=== PATIENT | female | born 1960 | race Caucasian/White ===

== ENCOUNTER 2020-01-07 11:29 | Outpatient (CLI) | payer BC, SELFPAY ==
--- NOTE | ~2020-01-07 | XR_ITS ---
XR foot LT 2V DATE: 01/07/2020 11:54 INDICATION: Left foot pain; no injury. TECHNIQUE: AP and lateral views COMPARISON: None FINDINGS: There is moderately prominent osteophyte is at the first metatarsophalangeal joint and oste oarthritis at some of the interphalangeal joints. Osteoarthritic is also noted at the tarsometatarsal joints. Plantar and posterior calcaneal enthesopathy. No fracture, dislocation, periosteal reaction or bone destruction. IMPRESSION: Polyarticular osteoarthritis Reviewed, dictated and finalized at location B. H DRIER
== END 2020-01-07 11:30 | disposition home or self-care (01) ==
PROVIDERS: PCP Family Medicine; Visit Provider Family Medicine
DX: M19.072 Primary osteoarthritis, left ankle and foot (principal)
CPT/HCPCS: 73620

== ENCOUNTER → 2020-08-25 09:05 | Outpatient (CLI) | payer BC, SELFPAY ==
--- NOTE | ~2020-08-25 | MR_ITS ---
EXAMINATION: MR lumbar spine wo [facility] EXAM DATE: 08/25/2020 09:49 INDICATION: Low back pain, bilateral leg numbness. TECHNIQUE: Multi-sequential, multiplanar MR images of the lumbar spine were obtained without contrast . Sagittal T1, T2, T2 fat saturation images. Axial T2 weighted images. Comparison is made to prior examination from 07/04/2019. FINDINGS: There is 2-3 mm anterolisthesis L4 on L5. The vertebral bodies are otherwise aligned. Mild to moderate disc disease L1-L4, mild at L4-5 and L5-S1. The conus medullaris terminates at the L1/2 l evel and has normal signal intensity and morphology. Mild thoracolumbar dextroscoliosis. There are n o suspicious marrow signal abnormalities. Paraspinal soft tissue is unremarkable. Level by level evaluation: T12-L1: There is a minimal diffuse disc bulge. Facet arthropathy: Mild. Neural foraminal stenosis: No stenosis. Central canal stenosis: No stenosis. L1-L2: There is a mild diffuse disc bulge. Facet arthropathy: Mild. Neural foraminal stenosis: Mild left. Central canal stenosis: Mild. L2-L3: There is a moderate diffuse disc bulge. Facet arthropathy: Mild to moderate . Ligamentum flavum enlargement. Neural foraminal stenosis: Mild to moderate left, mild right. Central canal stenosis: Mild to moderate. L3-L4: There is a moderate diffuse disc bulge. Facet arthropathy: Mild to moderate. Neural foraminal stenosis: Mild to moderate left, mild right. Central canal stenosis: Mild to moderate. L4-L5: There is a mild to moderate diffuse disc bulge asymmetric to the right. Facet arthropathy: Moderate . Ligamentum flavum enlargement. Neural foraminal stenosis: Moderate right, mild to moderate left. Central canal stenosis: Moderate to severe. L5-S1: There is a mild to moderate diffuse disc bulge. Facet arthropathy: Moderate right, mild to moderate left. Neural foraminal stenosis: Mild to moderate right, mild left. Central canal stenosis: Mild to moderate bilateral. Compared to study from 07/04/2019, difficult mild progression in the lumbar spondylosis. The L4-5 Cent ral canal is more narrowed. IMPRESSION: 1. L4-5 grade 1 anterolisthesis, moderate to severe central canal stenosis. 2. Lesser spondylosis other levels. Reviewed, dictated and finalized at location B.
== END ==
PROVIDERS: PCP Family Medicine; Visit Provider Nurse Practitioner Adult Health
DX: M54.16 Radiculopathy, lumbar region (principal)
CPT/HCPCS: 72148

== ENCOUNTER → 2021-01-07 11:07 | Outpatient (CLI) | payer BC, SELFPAY ==
[2021-01-07 20:13] LABS: SARS-CoV-2 RNA PCR Negative
== END ==
PROVIDERS: PCP Family Medicine; Visit Provider Physician Assistant
DX: R09.89 Other specified symptoms and signs involving the circulatory and respiratory systems (principal); R11.10 Vomiting, unspecified; R19.7 Diarrhea, unspecified; R50.9 Fever, unspecified; R51.9 Headache, unspecified
CPT/HCPCS: C9803; U0003; U0005

== ENCOUNTER 2021-02-22 07:54 | Outpatient (CLI) | payer BC, SELFPAY ==
--- NOTE | ~2021-02-22 | MM_ITS ---
EXAMINATION: MM screening mammo BI HISTORY: Screening mammogram TECHNIQUE: Craniocaudal and mediolateral oblique 3-D tomosynthesis images were obtained and synthetic 2-D images were generated. CAD analysis was submitted and interpreted. COMPARISON: 07/04/2019, 02/07/2018, 03/30/2016, 10/14/2014 bilateral digital screening mammogram examina tions BREAST PARENCHYMAL COMPOSITION: There are scattered areas of fibroglandular density. FINDINGS: Left breast masses appear mildly increased in prominence since prior examinations. Diagnost ic left mammogram and left breast ultrasound examination are recommended. Otherwise there is no evidence of suspicious mass, calcification, or architectural distortion to sugg est malignancy in either breast. There has been no other suspicious interval change. IMPRESSION: 1. Suggestion of mildly increased prominence of left breast masses since prior examinations 2. Diagnostic left mammogram and left breast ultrasound examination are recommended. BI-RADS Category 0: Incomplete: Needs additional imaging evaluation. Reviewed, dictated and finalized at location A. IMPRESSION: 1. Suggestion of mildly increased prominence of left breast masses since prior examinations 2. Diagnostic left mammogram and left breast ultrasound examination are recomme nded. BI-RADS Category 0: Incomplete: Needs additional imaging evaluation.
== END 2021-02-22 07:55 | disposition home or self-care (01) ==
LOC: ANHIMG 07:57
PROVIDERS: PCP Family Medicine; Visit Provider Physician Assistant
DX: Z12.31 Encounter for screening mammogram for malignant neoplasm of breast (principal); R92.8 Other abnormal and inconclusive findings on diagnostic imaging of breast
CPT/HCPCS: 77067

== ENCOUNTER 2021-03-16 12:24 | Outpatient (CLI) | payer BC, SELFPAY ==
--- NOTE | ~2021-03-16 | MMUS_ITS ---
EXAMINATION: MM diagnostic mammo unilat LT, US breast LT limited HISTORY: Mildly increased prominence of left breast masses noted on 02/22/2021 screening mammogram TECHNIQUE: Additional 3-D tomosynthesis images of the left breast were performed and synthetic 2-D im ages were generated. CAD analysis was submitted and interpreted. High resolution upper inner and uppe r outer left breast ultrasound was performed. COMPARISON: 02/22/2021 bilateral digital screening mammogram FINDINGS: MAMMOGRAPHIC FINDINGS: Scattered up to 7 mm circumscribed low-density opacities are identified, primarily in the upper mid l eft breast. ULTRASOUND: 11:00 9 cm from nipple: Septated 3.6 x 4.5 x 3.2 mm cyst, without internal vascularity or suspicious shadowing 12:00 3 cm from nipple: 10.9 x 5.2 x 7.7 mm circumscribed lesion without suspicious shadowing, probab le benign lymph node 1:00 5 cm from nipple: Parallel circumscribed 5 x 5.5 x 6.8 mm hypoechoic lesion without internal vas cularity or suspicious shadowing, most likely benign IMPRESSION: 1. Probable benign left breast masses 2. 6 month diagnostic left mammogram and left breast ultrasound follow-up are recommended BI-RADS category 3, probably benign findings. Reviewed, dictated and finalized at location A. IMPRESSION: 1. Probable benign left breast masses 2. 6 month diagnostic left mammogram and left breast ultrasound follow-up are r ecommended BI-RADS category 3, probably benign findings.
== END 2021-03-16 12:25 | disposition home or self-care (01) ==
PROVIDERS: PCP Family Medicine; Visit Provider Physician Assistant
DX: R92.8 Other abnormal and inconclusive findings on diagnostic imaging of breast (principal)
CPT/HCPCS: 76642; 77065

== ENCOUNTER → 2021-11-25 08:44 | Outpatient (CLI) | payer BC, SELFPAY ==
--- NOTE | ~2021-11-25 | CT_ITS ---
EXAMINATION: CT abdomen pelvis w con DATE: 11/25/2021 09:52 INDICATION: Unspecified abdominal pain. TECHNIQUE: Computed tomography (CT) of the abdomen and pelvis was performed with 100 mL Omnipaque 350 intravenous contrast. Automated exposure control and iterative reconstruction technique were employe d. The dose-length product was 1056.53 mGy-cm. COMPARISON: CT abdomen and pelvis 01/04/2019 FINDINGS: The visualized portions of the lung bases demonstrate mild atelectasis. No pleural effusion . The heart size is normal. No pericardial effusion. There is diffuse hepatic steatosis. There are ga llstones in the gallbladder, which is normal in size. The spleen, pancreas, and right adrenal gland a re normal. There is a 1.8 cm mass in left adrenal gland measuring soft tissue attenuation without rick nge in size, likely an adenoma. The kidneys are normal. There are no dilated loops of bowel. The shauna ent is not visualized. There are no pathologically enlarged lymph nodes. There is no free intraperito dawn fluid. There is a ventral hernia containing fat. There is lumbar dextroscoliosis. There is sever e thoracic and lumbar spondylosis. IMPRESSION: 1. Cholelithiasis. No evidence of acute cholecystitis. 2. Ventral hernia containing fat. 3. Diffuse hepatic steatosis. Reviewed, dictated and finalized at location A. DARDS ENGINEER
[2021-11-25 09:30] LABS: Estimated Glomerular Filt Rate > 60
== END ==
PROVIDERS: PCP Family Medicine; Visit Provider Family Medicine
DX: K43.9 Ventral hernia without obstruction or gangrene (principal); K76.0 Fatty (change of) liver, not elsewhere classified; K80.20 Calculus of gallbladder without cholecystitis without obstruction
CPT/HCPCS: 74177; Q9967

== ENCOUNTER 2021-12-29 08:24 | Outpatient (CLI) | payer BC, SELFPAY ==
--- NOTE | 2021-12-29 08:30 | ECG_ITS ---
Measurements Intervals [place] Rate: 90 P: MD: 0 QRS: 27 QRSD: 90 T: -60 QT: 336 QTc: 412 Interpretive Statements SINUS RHYTHM BORDERLINE ST-T WAVE ABNORMALITY- INFERIOR LEADS BASELINE ARTIFACT- I, II, III, AVR, AVL, AVF, V4-V6 BORDERLINE ECG Electronically Signed On 12-29-2021 9:09:23 ORACLE ERP ARCHITECT by Kvng Wahl D.O.
[2021-12-29 09:25] LABS: Alanine Aminotransferase 34 U/L (4-35); Albumin Level 4.2 g/dL (3.5-5.1); Alkaline Phosphatase 88 U/L (38-126); Amylase 112 U/L (30-110); Anion Gap 8 mmol/L (8-16); Aspartate Amino Transferase 38 U/L (14-36); Bilirubin,Total 0.9 mg/dL (0.2-1.3); Blood Urea Nitrogen 11 mg/dL (7-17); Calcium 9.3 mg/dL (8.4-10.2); Carbon Dioxide 29 mmol/L (22-30); Chloride 102 mmol/L (98-107); Estimated Glomerular Filt Rate > 60; Glucose 112 mg/dL (65-110); Lipase 83 U/L (23-300); Potassium 3.7 mmol/L (3.4-5.0); Sodium 139 mmol/L (137-145)
== END 2021-12-29 08:25 | disposition home or self-care (01) ==
LOC: ANHSURGERY 08:29
PROVIDERS: PCP Family Medicine; Visit Provider Surgery
DX: K80.20 Calculus of gallbladder without cholecystitis without obstruction (principal); Z01.818 Encounter for other preprocedural examination; R94.31 Abnormal electrocardiogram [ECG] [EKG]
CPT/HCPCS: 36415; 80048; 80076; 82150; 83690; 86850; 86900; 86901; 93005

== ENCOUNTER 2022-01-03 01:20 | Day surgery (SDC) | payer BC, SELFPAY ==
[2021-12-23 17:04] VITALS: BMI 39.2
--- NOTE | 2021-12-23 17:12 | SUR.PREOP ---
Report to the Outpatient Waiting Room, entrance under the green pavilion located off [facility], at time 1100_ on date _01/03/22 . OR Time: _1 pm . - You will be asked a series of questions to screen for COVID 19 for your protection. - A mask is required within the hospital. - No visitors are allowed at this time. Preoperative COVID Testing Requirements: No COVID Test needed if: (proof is required; if not received patient will have Rapid Test prior to entry) - Patient has received COVID Vaccine at least 14 days prior to procedure date or - Patient has positive COVID test result within last 90 days of surgery date. COVID Test needed if above criteria is not met If not COVID vaccinated a COVID test must be conducted within 72 hours of surgery and patient is asked to isolate self from time of testing until procedure. You will go to the [facility] for your COVID testing. The [facility] [facility] is located at the corner of [address] [facility]. You will only be called if COVID results are positive and your surgeon may reschedule your elective surgery date. Patients may have clear liquids (water, carbonated beverages, clear teas, apple juice) until 3 hours prior to surgery with a maximum of 20 ounces. - No food from midnight until time of surgery - Infants may have breast milk until 4 hours before surgery, formula 6 hours prior to surgery. - Children will be allowed to drink immediately following surgery. If applicable, please bring a bottle or sippy cup to assist with drinking. Juice, water, soda, and popsicles are readily available. For infants on formula, please bring formula the day of surgery. Pacifiers are allowed. Take the following medications with a SIP of water the morning of surgery: _duloxetine,alprazalam Medications to discontinue per physician ___vitamin Date to take last dose_12/31/21 Please no make-up, nail ethiopian, hairspray, perfume, deodorant, or body powder the day of surgery. No jewelry (including any body piercings) or valuables the day of surgery, leave them at home. Please take a shower or bath the night before, or the morning of, surgery with an antibacterial soap. Wear comfortable, loose fitting clothing. Children are encouraged to wear pajamas. - Jewelry must be removed prior to entering the operating room. Rings and piercings that are not removed may be cut off. - The hospital will not accept responsibility for valuables. - Please leave all valuables, including medications, at home the day of surgery. If you are going home after surgery, a licensed medical van driver must drive you home. - NO public transportation without another adult. - We recommend that an adult stay with you for 24 hours following discharge. - We also recommend that you do not drive, make important decision, drink alcoholic beverages, or take any drugs that were not prescribed by your health care provider for at least 24 hours after your discharge time. For Pediatric surgeries, we recommend two adults accompany the child home (only one inside the building at this time). Follow any additional instructions given to you from your surgeon. Telephone instructions given to _nathalie sewell and asked if any additional questions and then verbalized understanding. Patient advised to call surgeon office or pre surgery nurse liaison [phone] if any additional questions.
[2022-01-03] VITALS (7 sets, daily range): BP systolic 118–136; BP diastolic 66–81; PULSE 89–99; RESP 15–19; TEMP 36.3–36.4; O2SAT 93–97
--- NOTE | 2022-01-03 08:03 | WPDANESEPPF ---
Anes - Initial Pre Proc Eval Procedure: Operation Date: 01/03/22 13:00 Proposed Procedures p Laparoscopic Cholecystectomy Possible Open - Luis Taylor DO Date/Time: 01/03/22 08:03 Surgeon: Luis Taylor DO Pre Op Diagnosis: symptomatic cholelithiasis Patient Data Age: 61 Gender: F Height: 1.57 m Weight: 97.27 kg Allergies Allergy/AdvReac Type Severity Reaction Status Date / Time Iodinated Contrast Media Allergy Intermediate rash Verified 01/03/22 11:14 erythromycin base Allergy Mild stomach Verified 01/03/22 11:14 upset adhesive AdvReac Intermediate RASH/REDNESS Verified 01/03/22 11:14 AT SITE,blisters Home Medications Medication Instructions Recorded Confirmed Type fluticasone propionate 50 See Rx Instructions .ROUTE 10/22/20 01/03/22 Rx mcg/actuation nasal .COMPLEX #48 g spray,suspension lisinopril 20 1 tablet PO DAILY #90 tablet 05/26/21 01/03/22 Rx mg-hydrochlorothiazide 12.5 mg tablet cyclobenzaprine 10 mg tablet See Rx Instructions .ROUTE 10/05/21 01/03/22 Rx .COMPLEX #50 tablet tramadol 50 mg tablet 50 mg PO Q6H PRN #60 tablet 10/05/21 01/03/22 Rx albuterol sulfate [ProAir HFA] 2 inh INHALATION PRN 12/23/21 01/03/22 History alprazolam 1 mg PO HS 12/23/21 01/03/22 History aspirin [Adult Aspirin] 81 mg PO DAILY 12/23/21 01/03/22 History kb-wyy-sawoj-calcium carb-K1 1 tablet PO DAILY 12/23/21 01/03/22 History [Women's 50 Plus Multivitamin] polyethylene glycol 3350 [Miralax] 1 g PO DAILY 12/23/21 01/03/22 History duloxetine 60 mg capsule,delayed See Rx Instructions .ROUTE 12/28/21 01/03/22 Rx release .COMPLEX #90 cap Patient hx anesthesia problems: none Family hx anesthesia problems: none Results Review: All pre-operative results and documents have been reviewed as part of the pre-operative evaluation. 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 ct no nodules Surgical History Surgical History H/O resection of small bowel H/O total knee replacement H/O umbilical hernia repair History of appendectomy History of hysterectomy History of incisional hernia repair Family History Family History Sibling Family history of lung cancer Mother Diabetes mellitus Father Carcinoma of colon Other Hypertension Tuberculosis Social History Social History Years smoked: 18 Smoking status: Former smoker Tobacco type: cigarettes Smoking end date: 11/20/98 Additional smoking assessment comments: 1/2 ppd cigarettes x23 years Alcohol intake: never Substance use type: does not use Living arrangements: with family Additional living arrangements comments: Pt lives with at home Additional occupation/education comments: [employer]st Spiritual care concerns: No Anes - Eval Final PreProcedure Day of Procedure 01/03/22 08:03 Patient weight: obese Heart: regular rate and rhythm Lungs: clear to auscultation and normal air movement Airway: Mallampati scale class II Neurological: alert and oriented Last oral intake: >/= 8 hours ASA classification: III Emergent: no Anesthetic plan: proceed Anesthesia type and monitoring: general ETT Results Review: All pre-operative results and documents have been reviewed as part of the pre-operative evaluation. Informed Consent: The patient's anesthetic plan and its attendant risks and benefits were discussed with the patient/family/POA. Questions were solicited and answers provided to the satisfaction
[2022-01-03] MEDS: ACETAMINOPHEN 500 MG TABLET 1000 MG PO (11:35)
[2022-01-03] MEDS: LACTATED RINGERS 1,000 ML 30 ML IV CONT ×2 (11:50→14:48)
[2022-01-03] MEDS: KETOROLAC 15 MG/ML VIAL (*BKC) IV PUSH (12:00)
--- NOTE | 2022-01-03 12:47 | WPDHPUPDATE1 ---
History and Physical Update Update Date/Time: 01/03/22 12:47 History and Physical has been reviewed, including an updated exam of the patient. There are NO changes in the patient's condition. Risks, benefits, and alternatives have been discussed and questions answered. Patient agrees to proceed with procedure.
[2022-01-03] MEDS: SCOPOLAMINE 1.5 MG PATCH TRANSDERM (12:56)
[2022-01-03] MEDS: ceFAZolin 2 GM/D5W 50 ML 2 GM/50 ML BAG IVPB (13:08)
[2022-01-03] MEDS: BUPIVACAINE/EPINEPHRINE 0.5% 30 ML VIAL INFILTRATE (13:47)
--- NOTE | 2022-01-03 14:47 | W.PM.PROC2 ---
Procedure Note - Detailed Date of Procedure 01/03/22 Pre-op Diagnosis symptomatic cholelithiasis, recurrent incisional hernia Post-op Diagnosis same Procedure Performed Laparoscopic cholecystectomy Laparoscopic lysis of adhesions Surgeon Luis Taylor, DO Anesthesia general and local (0.5% bupivacaine) Indications This is a 61-year-old woman presents with abdominal pains for the past 3 months. She was found to have evidence of cholelithiasis and recurrent incisional hernia on a CT scan. She has modified her diet to a low-fat diet since she noted these symptoms. This has helped improve the symptoms. She has a history of a small-bowel resection for GIST and had an incisional hernia repair with mesh 1 year later. The previous operative reports and CT were reviewed and discussions were made with the patient about treatment options. Decision was made to proceed with laparoscopic cholecystectomy, possible open. I discussed assessing the hernia at the time of laparoscopic cholecystectomy and determining how hernia repair will be best approached. Findings Laparoscopic cholecystectomy was performed. I entered the abdomen in the left subcostal region to avoid any of the expected adhesions or mesh in the midline. There were extensive omental and transverse colon adhesions up to the prior mesh. Adhesiolysis was performed to carefully take down all the adhesions from the mid to upper abdominal wall. There were still some adhesions in the lower midline inferior to where the prior mesh was placed. Total operating time was 70 minutes and about 40 minutes of this time was spent taking down adhesions. I was then able to identify the gallbladder and the gallbladder did have a few pericholecystic adhesions. The gallbladder wall appeared very thin. As I was grasping and retracting at the infundibulum, the gallbladder did tear easily and some of the bile was spilled. The cystic duct appeared normal in size. There were 2 small gallstones within the gallbladder. The gallbladder was removed and sent to the lab for pathology. The right upper quadrant was then irrigated with 1 L of sterile saline. No other significant abnormalities were identified in the right upper quadrant. There were 2 small areas of bleeding along the omentum where the adhesiolysis was performed. A [place] grasper with electrocautery was used to carefully grasp the bleeding vessel and cauterize while retracting away from any bowel beneath it. The prior hernia repair was carefully inspected. There appeared to be a 6 cm upper midline hernia at the superior portion of the mesh repair. The mesh appeared to be ballooning up into the hernia defect and was not overlapping the hernia on the left lateral side and superior side. The remainder of the mesh appeared intact. Description of Procedure Procedure as well as risks, benefits, and alternatives were discussed with patient. Written consent was obtained and placed in chart prior to procedure. The patient was brought back to surgical suite. Patient was placed in supine position on operating table. Time-out was done to confirm patient and procedure. Patient was then intubated by the anesthesia department. Abdomen was prepped and draped in sterile fashion using chlorhexidine prep. 0.5% bupivacaine with epinephrine was infiltrated at each site of incision. A 5 mm incision was made in the left upper quadrant and a 5 mm Optiview trocar was advanced through the abdominal layers under direct visualization. Once inside the abdominal cavity, carbon dioxide insufflation was used to create a pneumoperitoneum. The camera was inserted and the abdomen was inspected. The left lateral abdomen appeared free of adhesions, but there were extensive adhesions in the mid abdomen. Another 5 mm incision was made in the left lateral abdomen a 5 mm trocar was inserted under direct visualization. Careful dissection of the adhesions was carried out using Metzenbaum scissors
== END 2022-01-03 16:42 | disposition home or self-care (01) ==
PROVIDERS: PCP Family Medicine; Visit Provider Surgery
PROC: 0FT44ZZ Resection of Gallbladder, Percutaneous Endoscopic Approach (ICD-10-PCS; CPT 47562; principal; 2022-01-03 13:00)
DX: K80.10 Calculus of gallbladder with chronic cholecystitis without obstruction (principal); Z85.89 Personal history of malignant neoplasm of other organs and systems; K43.2 Incisional hernia without obstruction or gangrene; K66.0 Peritoneal adhesions (postprocedural) (postinfection); Z90.49 Acquired absence of other specified parts of digestive tract; Z87.891 Personal history of nicotine dependence; Z79.82 Long term (current) use of aspirin; Z79.51 Long term (current) use of inhaled steroids; I10 Essential (primary) hypertension; E66.01 Morbid (severe) obesity due to excess calories; Z68.41 Body mass index [BMI] 40.0-44.9, adult; R11.0 Nausea; R10.30 Lower abdominal pain, unspecified; R10.11 Right upper quadrant pain
CPT/HCPCS: 47562; 88304; A9270; J0690; J1100; J1170; J1885; J2250; J2405; J2704; J2710; J3010; J7030; J7120

== ENCOUNTER → 2023-05-09 08:46 | Outpatient (CLI) | payer MEDICARE, SELFPAY ==
--- NOTE | ~2023-05-09 | CT_ITS ---
CT of the Abdomen and Pelvis: Indication: Abdominal pain Technique: 2.5 mm axial scans were obtained through the abdomen and pelvis following intravenous adm inistration of 100 cc of Omnipaque 350. Dose reduction technique was used on this scan by utilizing a utomated exposure control and iterative reconstruction technique. The dose-length product (DLP) was 1 117.97 mGy-cm. COMPARISON: 11/25/2021 and 10/06/2017 Findings: Scans through the lung bases are unremarkable. The liver, spleen, pancreas, right adrenal gland, and kidneys are within normal limits. 1.6 cm left a drenal nodule is present, essentially unchanged from prior exams. Cholecystectomy clips noted. No ru dence of aortic aneurysm. No lymphadenopathy. No bowel obstruction or bowel wall thickening. There is no evidence to suggest acute appendicitis. Images through the pelvis were performed. Urinary bladder unremarkable. No pelvic mass seen. No ascit es. Impression: No acute abnormality. 1.6 cm left adrenal nodule is essentially unchanged, most consistent with benign adenoma. Reviewed, dictated and finalized at location . Impression: No acute abnormality. 1.6 cm left adrenal nodule is essentially unchanged, most consistent with benig n adenoma.
[2023-05-09 09:18] LABS: Estimated Glomerular Filt Rate > 60
== END ==
PROVIDERS: PCP Emergency Medicine; Visit Provider Physician Assistant
DX: R10.9 Unspecified abdominal pain (principal); D35.02 Benign neoplasm of left adrenal gland
CPT/HCPCS: 74177; Q9967

== ENCOUNTER 2023-05-09 09:31 | Outpatient (CLI) | payer MEDICARE, SELFPAY ==
[2023-05-09 14:41] LABS: Basophils Percent Auto 0.2 % (0.2-1.2); Hemoglobin 14.3 g/dL (12.0-15.0); Immature Granulocyte Absolute 0.01 K/mm3 (0.00-0.031); Immature Granulocyte Percent A 0.2 % (0-0.5); Lymphocytes Absolute Auto 0.74 K/mm3 (0.9-3.2); Lymphocytes Percent Auto 15.6 % (18.3-44.2); Mean Corpuscular HGB Conc 32.5 g/dl (32-36); Mean Corpuscular Hemoglobin 31.1 pg (26-34); Mean Corpuscular Volume 95.7 fl (80-100); Mean Platelet Volume 9.7 fl (7.4-10.4); Monocytes Percent Auto 0.6 % (2.6-8.5); Neutrophils Absolute Auto 3.9 K/mm3 (1.3-6.7); Neutrophils Percent Auto 83.4 % (45.5-73.1); Platelet Count Result 350 k/mm3 (150-375); Red Cell Distribution Width 12.2 % (11.5-14.5); White Blood Count 4.7 K/mm3 (4.5-10.0)
[2023-05-09 16:48] LABS: Alanine Aminotransferase 37 U/L (6-35); Alkaline Phosphatase 83 U/L (38-126); Anion Gap 6 mmol/L (8-16); Aspartate Amino Transferase 36 U/L (14-36); Bilirubin,Total 0.8 mg/dL (0.2-1.3); Blood Urea Nitrogen 11 mg/dL (7-17); Calcium 8.9 mg/dL (8.4-10.2); Carbon Dioxide 26 mmol/L (22-30); Chloride 102 mmol/L (98-107); Cholesterol 176 mg/dL (0-200); Estimated Glomerular Filt Rate > 60; Glucose 156 mg/dL (65-110); HDL Direct 61 mg/dL; LDL Cholesterol Direct 85 mg/dL; Potassium 3.9 mmol/L (3.4-5.0); Sodium 134 mmol/L (137-145); Triglycerides 82 mg/dL (<150)
[2023-05-11 17:37] LABS: Hemoglobin A1C 5.5 % (<5.7)
== END 2023-05-09 09:32 | disposition home or self-care (01) ==
LOC: ANHGOSHLAB 09:32
PROVIDERS: PCP Emergency Medicine; Visit Provider Physician Assistant
DX: F32.9 Major depressive disorder, single episode, unspecified (principal); I10 Essential (primary) hypertension; Z79.899 Other long term (current) drug therapy; R73.01 Impaired fasting glucose
CPT/HCPCS: 36415; 80053; 80061; 83036; 84443; 85025

== ENCOUNTER 2023-06-05 10:32 | Outpatient (CLI) | payer MEDICARE, SELFPAY ==
--- NOTE | 2023-06-08 15:36 | WPDHOLTEREM ---
Holter/Event Monitor Holter/Event Monitor Date of procedure: 06/05/23 Holter/Event Procedure: 48 Hr Holter Monitor Indications: Palpitations Conclusion: 1. 48 hour holter monitor on 06/05/23. 2. Underlying rhythm is sinus rhythm. HR range 58-121 bpm; average HR 83 bpm. 3. There are 21 premature supraventricular complexes and 4 supraventricular couplets. No supraventricular tachycardia. 4. No premature ventricular complexes. No ventricular tachycardia. 5. No sinoatrial or atrioventricular blocks. No significant pauses greater than 2 seconds. 6. No symptoms available for correlation.
== END 2023-06-05 10:33 | disposition home or self-care (01) ==
PROVIDERS: PCP Emergency Medicine; Visit Provider Physician Assistant
DX: R00.2 Palpitations (principal)
CPT/HCPCS: 93225; 93226

== ENCOUNTER → 2023-08-21 11:55 | Outpatient (CLI) | payer MEDICARE, SELFPAY ==
--- NOTE | ~2023-08-21 | XR_ITS ---
EXAMINATION: XR elbow RT min 3V DATE: 08/21/2023 12:05 INDICATION: Right arm pain after playing volleyball TECHNIQUE: Anteroposterior, two oblique and lateral views of the right elbow were obtained. COMPARISON: None. FINDINGS: Alignment is normal. No fracture or joint effusion. Mild osteoarthritis at the right elbow primarily involving the ulnotrochlear articulation. Enthesophytes at the medial and lateral epicondyles. Soft t issues are unremarkable. IMPRESSION: 1. Mild osteoarthritis at the right elbow. No joint effusion or acute osseous abnormality. Reviewed, dictated and finalized at location A. IMPRESSION: 1. Mild osteoarthritis at the right elbow. No joint effusion or acute osseous a bnormality.
--- NOTE | ~2023-08-21 | XR_ITS ---
EXAMINATION: XR wrist RT min 3V DATE: 08/21/2023 12:06 INDICATION: Right arm pain after playing volleyball TECHNIQUE: Posteroanterior, ulnar deviation, oblique, and lateral views of the right wrist were obtai diana. COMPARISON: none FINDINGS: Alignment is normal. No fracture. Polyarticular osteoarthritis, moderate severity at the right first interphalangeal joint and mild at the distal radioulnar, radiocarpal, triscaphe, first carpometacarpa l, the metacarpophalangeal and remaining interphalangeal joints. Soft tissues are unremarkable. IMPRESSION: 1. Polyarticular osteoarthritis at the right hand and wrist, moderate at the first interphalangeal misty int and otherwise mild. Reviewed, dictated and finalized at location A. IMPRESSION: 1. Polyarticular osteoarthritis at the right hand and wrist, moderate at the fi rst interphalangeal joint and otherwise mild.
--- NOTE | ~2023-08-21 | XR_ITS ---
EXAMINATION: XR shoulder RT min 2V DATE: 08/21/2023 12:03 INDICATION: Right arm pain after playing volleyball TECHNIQUE: AP internally and externally rotated, AP oblique externally rotated and axillary views of the right shoulder were obtained. COMPARISON: None FINDINGS: Normal alignment. No fracture.Mild glenohumeral osteoarthritis with mild inferior predominant nonuni form joint space narrowing and small marginal osteophytes along the inferior glenoid. Mild to moderat e right acromioclavicular osteoarthritis. 11 x 10 x 5 mm globular region of amorphous calcific densit y overlying the posterior facet of the greater tuberosity consistent with rotator cuff calcific tendi nitis involving the distal teres minor and/or posterior most infraspinatus tendons. Visualized portio n of the lungs are clear. Soft tissues are unremarkable. IMPRESSION: 1. Mild to moderate right acromial clavicular and mild glenohumeral osteoarthritis. 2. Calcific tendinitis of the distal teres minor and/or posterior most infraspinatus tendons. Reviewed, dictated and finalized at location A. IMPRESSION: 1. Mild to moderate right acromial clavicular and mild glenohumeral osteoarthri tis. 2. Calcific tendinitis of the distal teres minor and/or posterior most infraspi natus tendons.
== END ==
PROVIDERS: PCP Emergency Medicine; Visit Provider Physician Assistant
DX: M19.031 Primary osteoarthritis, right wrist (principal); M19.021 Primary osteoarthritis, right elbow; M19.011 Primary osteoarthritis, right shoulder
CPT/HCPCS: 73030; 73080; 73110

== ENCOUNTER 2023-08-28 20:53 | Inpatient (IN) | payer MEDICARE, SELFPAY ==
--- NOTE | ~2023-08-28 | US_ITS ---
EXAMINATION: US right upper quadrant DATE: 08/28/2023 23:26 INDICATION: Right upper quadrant pain. TECHNIQUE: Multiple grayscale and Doppler ultrasound images of the right upper quadrant were obtained . COMPARISON: CT abdomen pelvis 05/09/2023. FINDINGS: The visualized portions of the pancreas are normal. The liver is normal with normal echogen icity and echotexture. No surface nodularity. Normal hepatopetal flow in the main portal vein. The ga llbladder is surgically absent. The common bile duct measures 6 mm. There was no sonographic Schaffer s ign. IMPRESSION: Status post cholecystectomy. Otherwise unremarkable right upper quadrant ultrasound findings. Reviewed, dictated and finalized at location K.
--- NOTE | ~2023-08-28 | XR_ITS ---
EXAMINATION: XR_KUBGTUBINS_CR DATE: 08/29/2023 05:53 INDICATION: Nasogastric tube placement. TECHNIQUE: A supine view of the abdomen was obtained. COMPARISON: CT abdomen and pelvis 08/29/2023 FINDINGS: There are no gas-filled dilated loops of bowel. The nasogastric tube tip is in the stomach. Surgical clips in the right upper quadrant are likely from cholecystectomy. IMPRESSION: 1. Nasogastric tube tip in the stomach. Reviewed, dictated and finalized at location A.
--- NOTE | ~2023-08-28 | CT_ITS ---
EXAMINATION: CT abdomen pelvis w con DATE: 08/29/2023 00:31 INDICATION: Right upper quadrant abdominal pain. Vomiting. TECHNIQUE: Computed tomography (CT) of the abdomen and pelvis was performed with 100 mL Omnipaque 350 intravenous contrast. Automated exposure control and iterative reconstruction technique were employe d. The dose-length product was 1234.94 mGy-cm. COMPARISON: CT abdomen and pelvis 05/09/23, 01/04/2019 FINDINGS: The visualized portions of the lung bases demonstrate mild atelectasis. No pleural effusion . The heart size is normal. No pericardial effusion. There is mild intrahepatic biliary duct dilatati on, likely secondary to cholecystectomy. The spleen, pancreas, and right adrenal gland are normal. Th ere is a 2.0 cm mass in left kidney measuring soft tissue attenuation, stable from 01/04/2019, likely an adenoma. The kidneys are normal. The appendix is not visualized. There are fluid-filled dilated lo ops of mid small bowel with gradual transition point in the right abdomen. There are no pathologicall y enlarged lymph nodes. There is no free intraperitoneal fluid. There is severe thoracic and lumbar s pondylosis. There is mild chronic anterior wedging of multiple thoracic vertebral bodies. Thoracic de xtroscoliosis is noted. IMPRESSION: 1. Dilated small bowel with gradual transition point in the right abdomen, consistent with small filiberto l obstruction versus adynamic ileus. Reviewed, dictated and finalized at location A. IMPRESSION: 1. Dilated small bowel with gradual transition point in the right abdomen, cons istent with small bowel obstruction versus adynamic ileus.
--- NOTE | ~2023-08-28 | XR_ITS ---
XR abdomen gastric tube rechec INDICATION: Evaluate NG tube position. TECHNIQUE: Limited KUB perform for evaluating NG tube . COMPARISON: No prior studies for comparison. FINDINGS: NG tube tip in the stomach. Visualized bowel gas pattern is unremarkable.There is residual barium in the colon which is nondilated. There are cholecystectomy clips. IMPRESSION: 1: NG tube tip in the stomach. Reviewed, dictated and finalized at location B.
--- NOTE | ~2023-08-28 | XR_ITS ---
EXAMINATION: XR chest 1V portable DATE: 08/29/2023 03:06 INDICATION: Epigastric abdominal pain. TECHNIQUE: A single frontal view of the chest was obtained. COMPARISON: Chest 2 views 04/23/2014, CT abdomen and pelvis 08/29/2023 FINDINGS: There are airspace opacities in the lower lung zones, likely atelectasis. No pleural effusi on or pneumothorax. The heart size is normal. IMPRESSION: 1. Atelectasis in the lower lung zones. Reviewed, dictated and finalized at location A.
--- NOTE | ~2023-08-28 | XR_ITS ---
EXAMINATION: XR sm bowel follow through WS DATE: 08/29/2023 11:54 INDICATION: Small bowel obstruction. TECHNIQUE: Oral contrast was administered, and a time course of radiographs of the abdomen was obtain ed. Fluoroscopy of the small bowel was performed. Fluoroscopy exposure time was 0.5 minutes. The tota l number of images was 9. COMPARISON: CT abdomen and pelvis 08/29/2023 FINDINGS: The nasogastric tube tip is in the stomach. Surgical clips in the right upper quadrant are likely fro m cholecystectomy. There are dilated loops of mid small bowel. The terminal ileum is normal. Transit time from the stomach to proximal colon was approximately 45 minutes. IMPRESSION: 1. Dilated mid small bowel with normal transit time to the colon, likely adynamic ileus. Reviewed, dictated and finalized at location A. IMPRESSION: 1. Dilated mid small bowel with normal transit time to the colon, likely adynam ic ileus.
[2023-08-28 20:56] VITALS: BP 114/92; PULSE 71; RESP 18; TEMP 36.9; O2SAT 96
[2023-08-28 21:11] LABS: Basophils Absolute Auto 0.1 K/mm3 (0.0-0.1); Basophils Percent Auto 0.4 % (0.2-1.2); Eosinophils Absolute Auto 0.1 K/mm3 (0-0.3); Eosinophils Percent Auto 0.4 % (0-4.4); Hematocrit 46.5 % (37.0-47.0); Hemoglobin 15.7 g/dL (12.0-15.0); Immature Granulocyte Absolute 0.06 K/mm3 (0.00-0.031); Immature Granulocyte Percent A 0.5 % (0-0.5); Lymphocytes Absolute Auto 1.39 K/mm3 (0.9-3.2); Lymphocytes Percent Auto 10.8 % (18.3-44.2); Mean Corpuscular HGB Conc 33.8 g/dl (32-36); Mean Corpuscular Hemoglobin 31.4 pg (26-34); Mean Platelet Volume 9.1 fl (7.4-10.4); Monocytes Absolute Auto 0.7 K/mm3 (0.1-0.6); Monocytes Percent Auto 5.2 % (2.6-8.5); Neutrophils Absolute Auto 10.7 K/mm3 (1.3-6.7); Neutrophils Percent Auto 82.7 % (45.5-73.1); Platelet Count Result 357 k/mm3 (150-375); Red Cell Distribution Width 12.2 % (11.5-14.5); White Blood Count 12.9 K/mm3 (4.5-10.0)
[2023-08-28 21:21] LABS: Alanine Aminotransferase 209 U/L (6-35); Albumin Level 4.3 g/dL (3.5-5.1); Alkaline Phosphatase 132 U/L (38-126); Anion Gap 8 mmol/L (8-16); Aspartate Amino Transferase 292 U/L (14-36); Bilirubin,Total 1.9 mg/dL (0.2-1.3); Blood Urea Nitrogen 20 mg/dL (7-17); Calcium 9.1 mg/dL (8.4-10.2); Carbon Dioxide 27 mmol/L (22-30); Chloride 101 mmol/L (98-107); Estimated CRCL calculation 75 ml/min; Estimated Glomerular Filt Rate > 60; Glucose 163 mg/dL (65-110); Lipase 87 U/L (23-300); Potassium 3.5 mmol/L (3.4-5.0); Sodium 136 mmol/L (137-145)
--- NOTE | 2023-08-28 22:31 | ECG_ITS ---
Measurements Intervals [place] Rate: 69 P: 48 CA: 193 QRS: 44 QRSD: 94 T: 5 QT: 400 QTc: 430 Interpretive Statements SINUS RHYTHM NONSPECIFIC ST AND T-WAVE ABNORMALITY COMPARED TO ECG 12/29/2021 08:51:13 NO SIGNIFICANT CHANGES Electronically Signed On 08-29-2023 15:59:33 CDT by Brandon Oleary M.D.
[2023-08-28] MEDS: SODIUM CHLORIDE 0.9% IV 1,000 ML 999 ML IV CONT (22:51)
[2023-08-28] MEDS: PANTOPRAZOLE SODIUM IV 40 MG VIAL IV PUSH (22:52)
[2023-08-28] MEDS: ONDANSETRON INJ 4 MG/2 ML VIAL IV PUSH (22:52)
[2023-08-28] MEDS: MORPHINE SULFATE (*CRX) 4 MG/ML INJ IV PUSH (22:53)
--- NOTE | 2023-08-28 23:01 | ED.ABDPAIN ---
HPI - Abdominal Pain General Chief Complaint: Abdominal Pain Stated Complaint: abdominal pain Time Seen by Provider: 08/28/23 22:09 History of Present Illness HPI narrative: 63-year-old female with a history of hypertension, MDD, obesity, appendectomy, cholecystectomy, total hysterectomy, hernia repair, resection of abdominal tumor to her small bowel 10 years ago with what sounds like SBO at that time reports for evaluation for epigastric abdominal pain since this morning. Patient states this morning she woke up and drink her coffee and shortly and then began having pain in her epigastrium. She states over the past 5 to 6 hours it is worsened. States that she has had 5-6 episodes of bilious emesis and associated generalized weakness. She reports hot and cold flashes and feeling clammy. She also states she had 1 episode of diarrhea, denies melena or hematochezia. She states that and the waiting room she had a episode of emesis that was slightly streaked with blood but attributes this to irritation secondary to dry heaving. She denies coffee-ground emesis or syncope. She denies chest pain, shortness of breath, fever, cough or congestion, alcohol or drug use, dysuria or hematuria. Related Data Home Medications Medication Instructions Recorded Confirmed albuterol sulfate 90 mcg/actuation 2 inh inhalation PRN 12/23/21 08/21/23 aerosol inhaler (ProAir HFA) aspirin 81 mg tablet 81 mg PO DAILY 12/23/21 08/21/23 dytbryxy-fva-iprye ac 400 1 tablet PO DAILY 12/23/21 08/21/23 mcg-calcium carb 500 mg-vit K1 20 mcg tablet (Women's 50 Plus Multivitamin) polyethylene glycol 3350 17 gram 1 g PO DAILY 12/23/21 08/21/23 oral powder packet (Miralax) Allergies Allergy/AdvReac Type Severity Reaction Status Date / Time Iodinated Contrast Media Allergy Intermediate rash Verified 08/28/23 22:00 erythromycin base Allergy Mild stomach Verified 08/28/23 22:00 upset adhesive AdvReac Intermediate RASH/REDNESS Verified 08/28/23 22:00 AT SITE,blisters Review of Systems Review of Systems: CONSTITUTIONAL: Denies fever, chills EYES: Denies visual changes, redness, or discharge. ENT: Denies rhinorrhea, congestion, sore throat, or otalgia. CARDIOVASCULAR: Denies chest pain, palpitations, or edema. RESPIRATORY: Denies cough or dyspnea. GASTROINTESTINAL: See HPI GENITOURINARY: Denies dysuria or hematuria. SKIN: Denies rash or itching. MUSCULOSKELETAL: Denies back pain, joint pain, or myalgia. NEUROLOGIC: Denies headache, numbness, dizziness, or weakness. PSYCHIATRIC: Denies anxiety or depression. 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 ct no nodules Surgical History Surgical History H/O resection of small bowel H/O total knee replacement H/O umbilical hernia repair History of appendectomy History of hysterectomy History of incisional hernia repair Family History Family History Sibling Family history of lung cancer Mother Diabetes mellitus Father Carcinoma of colon Other Hypertension Tuberculosis Social History Social History Years smoked: 18 Smoking status: Former smoker Tobacco type: cigarettes Smoking end date: 11/20/98 Additional smoking assessment comments: 1/2 ppd cigarettes x23 years Alcohol intake: never Substance use type: does not use Lack of Transportation: No Lack of Food: Never True Current Housing: I Have Housing Concerned About Future Housing: No Difficulty Paying Gas/E
[2023-08-28] MEDS: diphenhydrAMINE HCl INJ 50 MG/ML VIAL 25 MG IV PUSH (23:28)
[2023-08-29] VITALS (8 sets, daily range): BP systolic 117–151; BP diastolic 62–92; PULSE 74–100; RESP 12–18; TEMP 35.9–36.9; O2SAT 91–96; BMI 42.4
[2023-08-29 00:23] LABS: Basophils Percent Auto 0.4 % (0.2-1.2); Eosinophils Percent Auto 0.3 % (0-4.4); Hematocrit 43.6 % (37.0-47.0); Hemoglobin 14.4 g/dL (12.0-15.0); Immature Granulocyte Absolute 0.05 K/mm3 (0.00-0.031); Immature Granulocyte Percent A 0.5 % (0-0.5); Lymphocytes Absolute Auto 0.71 K/mm3 (0.9-3.2); Lymphocytes Percent Auto 6.9 % (18.3-44.2); Mean Platelet Volume 9.3 fl (7.4-10.4); Monocytes Absolute Auto 0.4 K/mm3 (0.1-0.6); Monocytes Percent Auto 3.9 % (2.6-8.5); Platelet Count Result 344 k/mm3 (150-375); Red Blood Count 4.64 M/mm3 (4.2-5.4); Red Cell Distribution Width 12.3 % (11.5-14.5); White Blood Count 10.3 K/mm3 (4.5-10.0)
[2023-08-29 00:34] LABS: Prothrombin Time 13.8 Seconds (11.1-14.7)
[2023-08-29 00:35] LABS: Partial Thromboplastin Time 27.2 SECONDS (22.3-36.8)
[2023-08-29 00:37] LABS: Alanine Aminotransferase 210 U/L (6-35); Albumin Level 4.1 g/dL (3.5-5.1); Alkaline Phosphatase 115 U/L (38-126); Anion Gap 5 mmol/L (8-16); Aspartate Amino Transferase 228 U/L (14-36); Bilirubin,Total 1.8 mg/dL (0.2-1.3); Blood Urea Nitrogen 20 mg/dL (7-17); Calcium 8.7 mg/dL (8.4-10.2); Carbon Dioxide 30 mmol/L (22-30); Chloride 100 mmol/L (98-107); Estimated CRCL calculation 75 ml/min; Estimated Glomerular Filt Rate > 60; Glucose 142 mg/dL (65-110); Lipase 78 U/L (23-300); Potassium 3.4 mmol/L (3.4-5.0); Sodium 135 mmol/L (137-145)
[2023-08-29 00:38] LABS: Lactic Acid Reflex 1.7 mmol/L (0.7-2.0)
[2023-08-29 00:49] LABS: Troponin I < 0.012 ng/mL (0.000-0.034)
[2023-08-29 01:28] LABS: Appearance Urine Clear (Clear); Bilirubin Urine Negative (Negative); Blood Urine Trace-intact (Negative); Color Urine Yellow (Yellow); Glucose Urine UA Negative (Negative); Ketones Urine Negative (Negative); Leukocyte Esterase Ur Negative LEU/UL (Negative); Nitrate Urine Negative (Negative); Protein Urine Negative (Negative); pH Urine 8.5 (5.0-9.0)
[2023-08-29 01:32] LABS: Bacteria Urine None Seen /hpf; Non Pathogenic Casts 0-2; RBC Urine 0-2 /hpf (0-2); Squamous Epithelial Cell Urine None seen /hpf (Few); WBC Urine 0-5 /hpf
[2023-08-29 01:38] LABS: Add Urine Microscopic? YES
[2023-08-29] MEDS: ONDANSETRON INJ 4 MG/2 ML VIAL IV PUSH ×4 (02:16→21:54)
[2023-08-29] MEDS: MORPHINE SULFATE (*CRX) 4 MG/ML INJ IV PUSH (03:34)
[2023-08-29] MEDS: SODIUM CHLORIDE 0.9% IV 1,000 ML 999 ML IV CONT (03:35)
[2023-08-29] MEDS: HYDROmorphone HCL INJ (*CRX) 1 MG/ML SYR IV PUSH ×4 (05:36→22:43)
--- NOTE | 2023-08-29 05:58 | ADMGEN ---
This patient, Tammi Jimenez, was admitted to [facility] Surg Room 321-. Patient/family oriented to hospital policies and general routines including ID bracelet, bed and alarms, visiting hours, pain management, procedures, bathroom and other care routines, personal items, smoking policy, room service/diet, and visiting hours. Information on how to activate the Rapid Response Team has been discussed. Patient/Family are encouraged to report perceived risks to care and to ask questions if they do not understand what they are told or what they should do.
--- NOTE | 2023-08-29 06:35 | PM.IMHP ---
H&P: HPI History of Present Illness Date/Time: 08/29/23 06:35 Chief Complaint: Patient brought to the ER for evaluation with complaints of abdominal pain Narrative: 63 years old white female with the chronic multiple medical issues and morbid obesity has history of multiple abdominal surgeries in the past. She is complaining of abdominal pain since yesterday morning when she woke up and drank her coffee. Over the past 5-6 hours prior to arrival in ER it worsened. She had a biliary emesis episode associated with some generalized weakness. she got concerned and was brought to the ER for evaluation, workup was done which showed small bowel obstruction. General surgery was consulted who want to admit the patient for medical management, bowel rest and close monitoring. 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 ct -2028 no nodules Surgical History Surgical History H/O resection of small bowel H/O total knee replacement H/O umbilical hernia repair History of appendectomy History of hysterectomy History of incisional hernia repair Family History Family History Sibling Family history of lung cancer Mother Diabetes mellitus Father Carcinoma of colon Other Hypertension Tuberculosis Social History Social History Smoking packs per day: 0.5 Smoking cigarettes per day: 10.0 Years smoked: 21 Smoking pack-years: 10.50 Smoking status: Former smoker Tobacco type: cigarettes Second hand tobacco smoke exposure: No Smoking end date: 11/20/98 Additional smoking assessment comments: 1/2 ppd cigarettes x23 years Alcohol intake: never Substance use: never Substance use type: does not use Lack of Transportation: No Lack of Food: Never True Current Housing: I Have Housing Concerned About Future Housing: No Difficulty Paying Gas/Electric Bills: No Difficulty Paying for Meds: No Currently Unemployed: No Education: Trade/Vocational Certificate Difficulty w/ Childcare or Family Care: No Living arrangements: with family Additional living arrangements comments: Pt lives with at home Occupation/Education: retired Additional occupation/education comments: [employer] Spiritual care concerns: No Meds Home Medications and Allergies Home Medications Medication Instructions Recorded Confirmed Type albuterol sulfate 90 mcg/actuation 2 inh inhalation PRN 12/23/21 08/29/23 History aerosol inhaler (ProAir HFA) aspirin 81 mg tablet 81 mg PO DAILY 12/23/21 08/29/23 History vaiokzrc-hzr-rpdka ac 400 1 tablet PO DAILY 12/23/21 08/29/23 History mcg-calcium carb 500 mg-vit K1 20 mcg tablet (Women's 50 Plus Multivitamin) polyethylene glycol 3350 17 gram 1 g PO DAILY 12/23/21 08/29/23 History oral powder packet (Miralax) fluticasone propionate 50 See Rx Instructions .Route 03/07/22 08/29/23 Rx mcg/actuation nasal .COMPLEX #16 grams spray,suspension cyclobenzaprine 10 mg tablet See Rx Instructions .Route 12/12/22 08/29/23 Rx .COMPLEX #50 tabs pantoprazole 40 mg tablet,delayed 40 mg PO QAM #90 tabs 04/28/23 08/29/23 Rx release alprazolam 1 mg tablet 1 mg PO HS #90 tabs 08/01/23 08/29/23 Rx duloxetine 60 mg capsule,delayed See Rx Instructions .Route 08/22/23 08/29/23 Rx release .COMP
--- NOTE | 2023-08-29 09:10 | PM.IMPN ---
Progress Note: A&P Assessment and Plan (1) SBO (small bowel obstruction): Code(s): K56.609 - Unspecified intestinal obstruction, unspecified as to partial versus complete obstruction Status: Acute Assessment and Plan: NPO, IV fluids, General surgery consult, monitor symptoms, NG tube placed Small-bowel follow-through ordered and pending by General surgery (2) Essential (primary) hypertension: Code(s): I10 - Essential (primary) hypertension Status: Acute Assessment and Plan: Blood pressure reviewed 08/29 (3) Obesity, unspecified: Qualifiers: Body mass index: BMI 40.0-44.9 Obesity classification: adult class 3 (BMI >= 40) Obesity type: due to excess calories Serious obesity comorbidity presence: with serious comorbidity Qualified Code(s): E66.01 - Morbid (severe) obesity due to excess calories; Z68.41 - Body mass index [BMI]40.0-44.9, adult Code(s): E66.9 - Obesity, unspecified Status: Acute (4) Major depressive disorder, single episode, unspecified: Code(s): F32.9 - Major depressive disorder, single episode, unspecified Status: Acute (5) Chronic bilateral low back pain without sciatica: Code(s): M54.5 - Low back pain; G89.29 - Other chronic pain Status: Acute Assessment and Plan: Continue home medications Plan DVT prophylaxis with SCDs GI prophylaxis with PPI Code status full code Subjective Date/time seen: 08/29/23 09:10 Interval history: 63-year-old female with history of abdominal malignancy, hypertension is presenting with abdominal pain and currently being treated for small-bowel obstruction. No overnight events noted. No chest pain or shortness of breath. C/o nausea, no emesis since Ng placed. Quite uncomfortable. No fevers or chills. Review of Systems Review of Systems: 12 point review of systems was assessed and was negative except as noted in the HPI Exam Narrative: General: No acute distress, alert and oriented per baseline, ng in place HEENT: Atraumatic, normocephalic, mucous membranes moist CV: Regular rate and rhythm, S1, S2 Lungs: Clear to auscultation bilaterally, no rales or crackles noted, no wheezes, good air entry Abdomen: Soft, nontender, nondistended Extremities: Normal to inspection Skin: No rashes noted, no lesions or wounds seen Psych: Euthymic, normal affect Objective Data Vital Signs Vital Signs: Vital Signs - 24 hr 08/28/23 20:56 08/29/23 02:41 08/29/23 00:15 Temperature 98.4 F Pulse Rate 71 74 79 Respiratory Rate 18 12 16 Blood Pressure 114/92 H 151/91 H 131/92 H Pulse Oximetry 96 95 96 Oxygen Delivery Room Air 08/29/23 04:49 08/29/23 05:55 08/29/23 07:58 Temperature 98.5 F 96.7 F L Pulse Rate 84 82 87 Respiratory Rate 17 18 16 Blood Pressure 134/82 142/68 H 149/79 H Pulse Oximetry 95 96 94 Oxygen Delivery Intake/Output Intake/Output: Intake & Output 08/26/23 08/27/23 08/28/23 08/29/23 23:59 23:59 23:59 23:59 Intake Total 1000 Balance 1000 Meds/Results Medications: Active Medications Generic Name Dose Route Start Last Admin Trade Name Freq PRN Reason Stop Dose Admin Acetaminophen 650 mg 08/29/23 06:48 Acetaminophen 325 Mg Tablet PO Q4H PRN Mild Pain (1-3) or Fever Al Hydrox/Mg Hydrox/Simethicone 30 ml 08/29/23 06:48 Mag Hydrox/Al Hydrox/Simeth 30 Ml Udc PO QID PRN Dyspepsia Albuterol 2 puff 08/29/23 06:55 Albuterol Sulfate (*Sp) Aerosol 1 Puff INHALATION DAILY PRN Shortness Of Breath Alprazolam 1 mg 08/29/23 21:00 Alprazolam (*Crx) 0.5 Mg Tablet PO HS HOPE Cyclobenzaprine HCl 10 mg 08/29/23 06:55 Cyclobenzaprine Hcl 10 Mg Tablet BY MOUTH Q8H PRN MUSCLE SPASM Duloxetine HCl 60 mg 08/29/23 09:00 Duloxetine Hcl 60 Mg Capsule.Dr BY MOUTH DAILY HOPE Fluticasone Propionate 2 spray 08/29/23 09:00 Flutic
--- NOTE | 2023-08-29 09:49 | PM.CNGS ---
Assessment and Plan Assessment and plan (1) SBO (small bowel obstruction): Code(s): K56.609 - Unspecified intestinal obstruction, unspecified as to partial versus complete obstruction Status: Acute Assessment and Plan: CT suggests small bowel obstruction versus ileus with gradual transition point. NG was placed in the ER. She does have a history of extensive abdominal surgeries as mentioned in the HPI, which could account for significant intra-abdominal adhesions. Although, her history of vomiting and diarrhea prior to the onset of her abdominal pain, suggests that this could instead be related to enteritis. Her abdominal exam this morning is benign. We will get a water-soluble small bowel follow-through to further evaluate the small bowel obstruction. Continue NG tube decompression, bowel rest, IV fluids, and analgesics as needed for now. (2) Elevated LFTs: Code(s): R79.89 - Other specified abnormal findings of blood chemistry Status: Acute Assessment and Plan: Monitor labs, s/p cholecystectomy, management per Hospitalist (3) BMI 40.0-44.9, adult: Code(s): Z68.41 - Body mass index [BMI] 40.0-44.9, adult Status: Acute Plan I have discussed the patient's case and plan of care with Dr. Negro. Thank you for allowing us to see the patient in consultation and we will continue to follow along with you. History of Present Illness Consult details Consult date: 08/29/23 Reason for consult: other (Small-bowel obstruction) Requesting physician: Samantha Nowak PA-C Narrative: This is a 63-year-old woman who we have been asked to see for surgical evaluation of a small-bowel obstruction. She has a history of extensive abdominal surgeries in the past. She has a remote history an open appendectomy, total abdominal hysterectomy with bilateral salpingo-oophorectomy, and an umbilical hernia repair over 20 years ago. She was then found to have a small bowel tumor in 2009 and had an exploratory laparotomy with resection by Dr. Bautista. 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 She continues to have yearly CT scans of the abdomen and pelvis through her primary care provider for monitoring. Less than a year later, she developed an incisional hernia that was repaired with mesh by Dr. Bautista. Since then, she had a laparoscopic cholecystectomy [place] [address] Taylor. She denies any history of a small-bowel obstruction, other than dealing with the small-bowel tumor. She reports having issues with constipation, which is typically treated with laxatives at home and resolves. She also reports having an ileus following nearly all abdominal surgeries she has had in the past. Yesterday, she had a sudden onset of nausea, vomiting, and diarrhea around 5:00 p.m.. After vomiting, she developed upper abdominal pain and bloating. She felt so weak after multiple episodes of bilious emesis and was unable to get up off bathroom floor. Her helped move her to the bed. They then called EMS to take her to the ER for evaluation. Labs were significant for white blood cell count 12,900. To note, she was recently taking a methylprednisolone taper over the past week for arm pain. CT scan of the abdomen and pelvis showed dilated small bowel with gradual transition point in the right abdomen consistent with small bowel obstruction versus ileus. She has been admitted. NG tube was placed. She has had 600 cc out of her NG tube since admission. The patient is now seen in consultation on the medical floor. Her is at the bedside. She reports feeling much better this morning. She denies any abdominal pain at this time. She had multiple episodes of diarrhea at home, but no more bowel movements since admission. She is passing some flatus this morning. No other complaints at this time. Review of Systems Review of Systems: All systems revie
[2023-08-29] MEDS: SODIUM CHLORIDE 0.9% IV 1,000 ML 100 ML IV CONT ×2 (10:07→22:45)
--- NOTE | 2023-08-29 16:25 | PC.NURSE ---
Pt is A&O4 female who has participated and contributed in plan of care. Pt had small bowel follow through done today. Pt tolerated well. Pt reports pain and nausea when clamped off. Pt ambulates well in the room. Pt is SBA to the bathroom to help with NG and IV. Pt has family at bedside. IV infusing. Will continue to monitor pt.
[2023-08-29] MEDS: ALPRAZolam (*CRX) 0.5 MG TABLET 1 MG PO (22:44)
[2023-08-30] MEDS: ONDANSETRON INJ 4 MG/2 ML VIAL IV PUSH ×2 (01:58→07:06)
[2023-08-30 04:00] VITALS: BP 132/64; PULSE 81; RESP 18; TEMP 36.4; O2SAT 93
[2023-08-30 06:51] LABS: Basophils Percent Auto 0.5 % (0.2-1.2); Eosinophils Absolute Auto 0.1 K/mm3 (0-0.3); Eosinophils Percent Auto 0.9 % (0-4.4); Hematocrit 41.5 % (37.0-47.0); Hemoglobin 13.1 g/dL (12.0-15.0); Immature Granulocyte Absolute 0.03 K/mm3 (0.00-0.031); Immature Granulocyte Percent A 0.4 % (0-0.5); Lymphocytes Percent Auto 11.1 % (18.3-44.2); Mean Corpuscular HGB Conc 31.6 g/dl (32-36); Mean Corpuscular Hemoglobin 30.8 pg (26-34); Mean Corpuscular Volume 97.6 fl (80-100); Mean Platelet Volume 9.2 fl (7.4-10.4); Monocytes Absolute Auto 0.4 K/mm3 (0.1-0.6); Monocytes Percent Auto 4.7 % (2.6-8.5); Neutrophils Absolute Auto 6.7 K/mm3 (1.3-6.7); Neutrophils Percent Auto 82.4 % (45.5-73.1); Platelet Count Result 315 k/mm3 (150-375); Red Blood Count 4.25 M/mm3 (4.2-5.4); Red Cell Distribution Width 12.7 % (11.5-14.5); White Blood Count 8.1 K/mm3 (4.5-10.0)
[2023-08-30 07:00] LABS: Alanine Aminotransferase 131 U/L (6-35); Alkaline Phosphatase 90 U/L (38-126); Anion Gap 4 mmol/L (8-16); Aspartate Amino Transferase 55 U/L (14-36); Bilirubin,Total 1.3 mg/dL (0.2-1.3); Blood Urea Nitrogen 22 mg/dL (7-17); Calcium 8.7 mg/dL (8.4-10.2); Carbon Dioxide 29 mmol/L (22-30); Chloride 112 mmol/L (98-107); Estimated CRCL calculation 79 ml/min; Estimated Glomerular Filt Rate > 60; Glucose 120 mg/dL (65-110); Magnesium 2.4 mg/dL (1.6-2.3); Phosphorus 2.9 mg/dL (2.5-4.5); Potassium 3.2 mmol/L (3.4-5.0); Sodium 145 mmol/L (137-145)
[2023-08-30] MEDS: SODIUM CHLORIDE 0.9% IV 1,000 ML 100 ML IV CONT (08:37)
[2023-08-30] MEDS: POTASSIUM CHLORIDE INJ 40 MEQ in SODIUM CHLORIDE 0.9% IV 500 ML 130 MEQ IVPB (08:37)
[2023-08-30] MEDS: lisinopriL 20 MG TABLET PO (08:38)
[2023-08-30] MEDS: DULoxetine HCL 60 MG CAPSULE.DR BY MOUTH (08:38)
[2023-08-30] MEDS: THERAPEUTIC MULTIVITAMINS/MINERALS TAB (*BKC) 1 TABLET PO (08:38)
[2023-08-30] MEDS: hydroCHLOROthiazide 12.5 MG CAPSULE PO (08:38)
[2023-08-30] MEDS: PANTOPRAZOLE 40 MG TABLET PO (08:39)
[2023-08-30] MEDS: FLUTICASONE PROPIONATE 0.05% NA SPR 16 GM BTL (*BKC) 2 SPRAY NASAL (08:40)
[2023-08-30] MEDS: ACETAMINOPHEN 325 MG TABLET 650 MG PO ×2 (08:41→20:38)
--- NOTE | 2023-08-30 12:08 | PM.PNGS ---
Progress Note: A&P Assessment and Plan (1) SBO (small bowel obstruction): Code(s): K56.609 - Unspecified intestinal obstruction, unspecified as to partial versus complete obstruction Status: Acute Assessment and Plan: resolving, will clamp NG and possibly remove later today, ADAT if NG out, ok to dc home if norma diet Subjective Subjective Date/Time Seen: 08/30/23 12:08 Interval history: feels much better, multiple BMs, +flatus, abd pain resolved Review of Systems Review of Systems: All systems reviewed & are unremarkable except as noted in HPI and below Exam Const: General: cooperative, comfortable and no acute distress Resp: Auscultation: clear to auscultation bilaterally Cardio: Rate: regular rate Rhythm: regular rhythm GI: Inspection: normal to inspection and non-distended GI Palp: No abdominal tenderness, Yes Soft to palpation and No Tenderness to palpation present (GI) Objective Data Vital Signs Vital Signs: Vital Signs - 24 hr 08/29/23 15:50 08/29/23 23:47 08/30/23 04:00 Temperature 36.6 C 36.7 C 36.4 C Pulse Rate 100 82 81 Respiratory Rate 18 18 18 Blood Pressure 142/71 H 117/62 132/64 Pulse Oximetry 95 91 93 Oxygen Delivery 08/30/23 08:41 Temperature Pulse Rate Respiratory Rate Blood Pressure Pulse Oximetry Oxygen Delivery Room Air Intake/Output Intake/Output: Intake & Output 08/27/23 08/28/23 08/29/23 08/30/23 23:59 23:59 23:59 23:59 Intake Total 2000 1000 Output Total 800 100 Balance 1200 900 Meds/Results Medications: Active Medications Generic Name Dose Route Start Last Admin Trade Name Freq PRN Reason Stop Dose Admin Acetaminophen 650 mg 08/29/23 06:48 08/30/23 08:41 Acetaminophen 325 Mg Tablet PO 650 mg Q4H PRN Administration Mild Pain (1-3) or Fever Al Hydrox/Mg Hydrox/Simethicone 30 ml 08/29/23 06:48 Mag Hydrox/Al Hydrox/Simeth 30 Ml Udc PO QID PRN Dyspepsia Albuterol 2 puff 08/29/23 06:55 Albuterol Sulfate (*Sp) Aerosol 1 Puff INHALATION DAILY PRN Shortness Of Breath Alprazolam 1 mg 08/29/23 21:00 08/29/23 22:44 Alprazolam (*Crx) 0.5 Mg Tablet PO 1 mg HS HOPE Administration Cyclobenzaprine HCl 10 mg 08/29/23 06:55 Cyclobenzaprine Hcl 10 Mg Tablet BY MOUTH Q8H PRN MUSCLE SPASM Duloxetine HCl 60 mg 08/29/23 09:00 08/30/23 08:38 Duloxetine Hcl 60 Mg Capsule.Dr BY MOUTH 60 mg DAILY HOPE Administration Fluticasone Propionate 2 spray 08/29/23 09:00 08/30/23 08:40 Fluticasone Propionate 0.05% Na Spr 16 Gm Btl (*Bkc) NASAL 2 spray DAILY HOPE Administration Hydrochlorothiazide 12.5 mg 08/29/23 09:00 08/30/23 08:38 Hydrochlorothiazide 12.5 Mg Capsule PO 09/28/23 08:59 12.5 mg DAILY HOPE Administration Hydromorphone HCl 1 mg 08/29/23 03:41 08/29/23 22:43 Hydromorphone Hcl Inj (*Crx) 1 Mg/Ml Syr IV PUSH 1 mg Q4H PRN Administration Pain Rated 7-10 Sodium Chloride 1,000 mls @ 100 mls/hr 08/29/23 03:45 08/30/23 08:37 Normal Saline Iv IV CONT 100 mls/hr .Q10H HOPE Administration Lisinopril 20 mg 08/29/23 09:00 08/30/23 08:38 Lisinopril 20 Mg Tablet PO 09/28/23 08:59 20 mg DAILY HOPE Administration Multivitamins/Calcium 1 tablet 08/29/23 09:00 08/30/23 08:38 Therapeutic Multivitamins/Minerals Tab (*Bkc) PO 1 tablet DAILY HOPE Administration Ondansetron HCl 4 mg 08/29/23 03:41 08/30/23 07:06 Ondansetron Inj 4 Mg/2 Ml Vial IV PUSH 4 mg Q4H PRN Administration Nausea Pantoprazole Sodium 40 mg 08/29/23 09:00 08/30/23 08:39 Pantoprazole 40 Mg Tablet PO 40 mg QAM HOPE Administration Polyethylene Glycol 17 gm 08/29/23 09:00 08/30/23 08:39 Polyethylene Glycol 3350 17 Gm Powd.Pack PO Not Given DAILY [facility] [place] Radiology Results: ITS Impressions Upper Quadrant Ultrasound 08/28/23 23:37 IMPRESSION: Status post cholecystectomy. Otherwise unremarkable
[2023-08-30 14:00] VITALS: BP 142/75; PULSE 78; RESP 18; TEMP 35.7; O2SAT 94
[2023-08-30 14:44] VITALS: PULSE 72; O2SAT 96
--- NOTE | 2023-08-30 15:52 | PC.NURSE ---
Pt is A&O4 female who has participated and contributed in plan of care. Pt NG tube displaced this morning, tube repositioned X-Ray ordered and placement verified. Pt received medication through NG tube. Pt tolerated well. Pt was then clamped for 1 hour to allow medication to absorb into her system. Provider aware and ordered for tube to be clamped for 3 hours. If pt tolerates well, tube to be removed, and clear liquid diet to be started. Pt tube removed at 1530 and clear liquid diet started, pt tolerating well. Will continue to monitor pt.
--- NOTE | 2023-08-30 17:27 | PM.IMPN ---
Progress Note: A&P Assessment and Plan (1) SBO (small bowel obstruction): Code(s): K56.609 - Unspecified intestinal obstruction, unspecified as to partial versus complete obstruction Status: Acute Assessment and Plan: Patient has a hx of pSBO. She presents with abd pain and imaging showing SBO. She had NGT placed and bowel rest. CT scan showing gradual transition point in the right abdomen. She has SBS with dilated mid small bowel with normal transit time to the colon. GenSurg consulted and appreciate their input +BMs. NGT removed and clear liquid diet started. ADAT per GenSurg (2) Essential (primary) hypertension: Code(s): I10 - Essential (primary) hypertension Status: Acute Assessment and Plan: Patient's blood pressure was reviewed on 08/30 Blood pressure remains well controlled. Will continue to monitor (3) Obesity, unspecified: Qualifiers: Body mass index: BMI 40.0-44.9 Obesity classification: adult class 3 (BMI >= 40) Obesity type: due to excess calories Serious obesity comorbidity presence: with serious comorbidity Qualified Code(s): E66.01 - Morbid (severe) obesity due to excess calories; Z68.41 - Body mass index [BMI]40.0-44.9, adult Code(s): E66.9 - Obesity, unspecified Status: Acute Assessment and Plan: BMI 42. Healthy lifestyle encouraged (4) Major depressive disorder, single episode, unspecified: Code(s): F32.9 - Major depressive disorder, single episode, unspecified Status: Acute Assessment and Plan: Mood stable. Continue home meds (5) Chronic bilateral low back pain without sciatica: Code(s): M54.5 - Low back pain; G89.29 - Other chronic pain Status: Acute Assessment and Plan: Continue home medications (6) Elevated LFTs: Code(s): R79.89 - Other specified abnormal findings of blood chemistry Status: Acute Assessment and Plan: LFTs elevated on admission with AST 292, ALT 209, TB 1.[address] scan showing mild intrahepatic biliary duct dilation 2nd to CCY. Related to ileus and biliary stasis? Levels tending down. Follow Plan DVT prophylaxis with SCDs GI prophylaxis with PPI Code status full code Subjective Date/time seen: 08/30/23 17:27 Interval history: 63-year-old female with history of abdominal malignancy, hypertension is presenting with abdominal pain and currently being treated for small-bowel obstruction. Assuming care. Chart reviewed. Patient is having bowel movements after the small-bowel series. Also passing flatus. NG tube was removed earlier today. She is tolerating clear liquids. Exam Narrative: AF 96.3 142/75 72 18 96% ra Gen - NARD Chest - CTA bilaterally, nml RR CV - RRR S1/S2 Abd - Soft, NT/ND, Positive BS Ext - No pedal edema Psych - Nml mood and affect Skin - Warm and dry Objective Data Vital Signs Vital Signs: Vital Signs - 24 hr 08/29/23 23:47 08/30/23 04:00 08/30/23 08:41 Temperature 98.1 F 97.6 F Pulse Rate 82 81 Respiratory Rate 18 18 Blood Pressure 117/62 132/64 Pulse Oximetry 91 93 Oxygen Delivery Room Air 08/30/23 14:00 08/30/23 14:44 Temperature 96.3 F L Pulse Rate 78 72 Respiratory Rate 18 Blood Pressure 142/75 H Pulse Oximetry 94 96 Oxygen Delivery Room Air Intake/Output Intake/Output: Intake & Output 08/27/23 08/28/23 08/29/23 08/30/23 23:59 23:59 23:59 23:59 Intake Total 2000 1240 Output Total 800 100 Balance 1200 1140 Meds/Results Medications: Active Medications Generic Name Dose Route Start Last Admin Trade Name Freq PRN Reason Stop Dose Admin Acetaminophen 650 mg 08/29/23 06:48 08/30/23 08:41 Acetaminophen 325 Mg Tablet PO 650 mg Q4H PRN Administration Mild Pain (1-3) or Fever Al Hydrox/Mg Hydrox/Simethicone 30 ml 08/29/23 06:48 Mag Hydrox/Al Hydrox/Simeth 30 Ml Udc PO QID PRN Dyspepsia Alb
[2023-08-30] MEDS: ALPRAZolam (*CRX) 0.5 MG TABLET 1 MG PO (20:37)
[2023-08-30 20:42] VITALS: BP 108/58; PULSE 80; RESP 16; TEMP 36.4; O2SAT 95
[2023-08-31 05:46] VITALS: BP 123/65; PULSE 78; RESP 16; TEMP 36.3; O2SAT 94
[2023-08-31 07:03] LABS: Basophils Percent Auto 0.4 % (0.2-1.2); Eosinophils Absolute Auto 0.2 K/mm3 (0-0.3); Eosinophils Percent Auto 2.6 % (0-4.4); Hemoglobin 11.9 g/dL (12.0-15.0); Immature Granulocyte Absolute 0.03 K/mm3 (0.00-0.031); Immature Granulocyte Percent A 0.4 % (0-0.5); Lymphocytes Absolute Auto 2.17 K/mm3 (0.9-3.2); Lymphocytes Percent Auto 31.5 % (18.3-44.2); Mean Corpuscular HGB Conc 31.3 g/dl (32-36); Mean Corpuscular Hemoglobin 30.7 pg (26-34); Mean Corpuscular Volume 98.2 fl (80-100); Mean Platelet Volume 9.6 fl (7.4-10.4); Monocytes Absolute Auto 0.5 K/mm3 (0.1-0.6); Monocytes Percent Auto 6.5 % (2.6-8.5); Neutrophils Percent Auto 58.6 % (45.5-73.1); Platelet Count Result 267 k/mm3 (150-375); Red Blood Count 3.87 M/mm3 (4.2-5.4); Red Cell Distribution Width 12.7 % (11.5-14.5); White Blood Count 6.9 K/mm3 (4.5-10.0)
[2023-08-31 07:12] LABS: Alanine Aminotransferase 93 U/L (6-35); Albumin Level 3.3 g/dL (3.5-5.1); Alkaline Phosphatase 70 U/L (38-126); Anion Gap 2 mmol/L (8-16); Aspartate Amino Transferase 47 U/L (14-36); Bilirubin,Total 1.4 mg/dL (0.2-1.3); Blood Urea Nitrogen 19 mg/dL (7-17); Calcium 8.4 mg/dL (8.4-10.2); Carbon Dioxide 30 mmol/L (22-30); Chloride 106 mmol/L (98-107); Estimated CRCL calculation 79 ml/min; Estimated Glomerular Filt Rate > 60; Glucose 92 mg/dL (65-110); Potassium 3.4 mmol/L (3.4-5.0); Sodium 138 mmol/L (137-145)
[2023-08-31] MEDS: hydroCHLOROthiazide 12.5 MG CAPSULE PO (09:45)
[2023-08-31] MEDS: PANTOPRAZOLE 40 MG TABLET PO (09:45)
[2023-08-31] MEDS: THERAPEUTIC MULTIVITAMINS/MINERALS TAB (*BKC) 1 TABLET PO (09:45)
[2023-08-31] MEDS: lisinopriL 20 MG TABLET PO (09:45)
[2023-08-31] MEDS: DULoxetine HCL 60 MG CAPSULE.DR BY MOUTH (09:46)
[2023-08-31] MEDS: FLUTICASONE PROPIONATE 0.05% NA SPR 16 GM BTL (*BKC) 2 SPRAY NASAL (09:48)
--- NOTE | 2023-08-31 11:58 | PM.PNGS ---
Progress Note: A&P Assessment and Plan (1) SBO (small bowel obstruction): Code(s): K56.609 - Unspecified intestinal obstruction, unspecified as to partial versus complete obstruction Status: Acute Assessment and Plan: Resolved, tolerating a solid diet, bowels are moving. Okay to discharge from a surgical standpoint. No follow-up with surgery needed. Plan I have discussed the patient's case and plan of care with Dr. Negro. Subjective Subjective Date/Time Seen: 08/31/23 11:58 Patient reports: no new complaints, feels better, tolerating a regular diet, flatus and bowel movement Interval history: Doing well today. Denies abdominal pain, nausea, vomiting, or bloating. Exam GI: Inspection: non-distended and obesity GI Palp: Yes Soft to palpation, No Tenderness to palpation present (GI), No Guarding due to palpation present (GI) and No Rebound tenderness present Auscultation: normal bowel sounds Objective Data Vital Signs Vital Signs: Vital Signs - 24 hr 08/30/23 14:00 08/30/23 14:44 08/30/23 20:42 Temperature 96.3 F L 97.5 F L Pulse Rate 78 72 80 Respiratory Rate 18 16 Blood Pressure 142/75 H 108/58 L Pulse Oximetry 94 96 95 Oxygen Delivery Room Air 08/30/23 20:00 08/31/23 05:46 Temperature 97.3 F L Pulse Rate 78 Respiratory Rate 16 Blood Pressure 123/65 Pulse Oximetry 94 Oxygen Delivery Room Air Intake/Output Intake/Output: Intake & Output 08/28/23 08/29/23 08/30/23 08/31/23 23:59 23:59 23:59 23:59 Intake Total 1999 2982 300 Output Total 800 100 0 Balance 1200 2882 300 Meds/Results Medications: Active Medications Generic Name Dose Route Start Last Admin Trade Name Freq PRN Reason Stop Dose Admin Acetaminophen 650 mg 08/29/23 06:48 08/30/23 20:38 Acetaminophen 325 Mg Tablet PO 650 mg Q4H PRN Administration Mild Pain (1-3) or Fever Al Hydrox/Mg Hydrox/Simethicone 30 ml 08/29/23 06:48 Mag Hydrox/Al Hydrox/Simeth 30 Ml Udc PO QID PRN Dyspepsia Albuterol 2 puff 08/29/23 06:55 Albuterol Sulfate (*Sp) Aerosol 1 Puff INHALATION DAILY PRN Shortness Of Breath Alprazolam 1 mg 08/29/23 21:00 08/30/23 20:37 Alprazolam (*Crx) 0.5 Mg Tablet PO 1 mg HS HOPE Administration Cyclobenzaprine HCl 10 mg 08/29/23 06:55 Cyclobenzaprine Hcl 10 Mg Tablet BY MOUTH Q8H PRN MUSCLE SPASM Duloxetine HCl 60 mg 08/29/23 09:00 08/31/23 09:46 Duloxetine Hcl 60 Mg Capsule.Dr BY MOUTH 60 mg DAILY HOPE Administration Fluticasone Propionate 2 spray 08/29/23 09:00 08/31/23 09:48 Fluticasone Propionate 0.05% Na Spr 16 Gm Btl (*Bkc) NASAL 2 spray DAILY HOPE Administration Hydrochlorothiazide 12.5 mg 08/29/23 09:00 08/31/23 09:45 Hydrochlorothiazide 12.5 Mg Capsule PO 09/28/23 08:59 12.5 mg DAILY HOPE Administration Hydromorphone HCl 1 mg 08/29/23 03:41 08/29/23 22:43 Hydromorphone Hcl Inj (*Crx) 1 Mg/Ml Syr IV PUSH 1 mg Q4H PRN Administration Pain Rated 7-10 Lisinopril 20 mg 08/29/23 09:00 08/31/23 09:45 Lisinopril 20 Mg Tablet PO 09/28/23 08:59 20 mg DAILY HOPE Administration Multivitamins/Calcium 1 tablet 08/29/23 09:00 08/31/23 09:45 Therapeutic Multivitamins/Minerals Tab (*Bkc) PO 1 tablet DAILY HOPE Administration Ondansetron HCl 4 mg 08/29/23 03:41 08/30/23 07:06 Ondansetron Inj 4 Mg/2 Ml Vial IV PUSH 4 mg Q4H PRN Administration Nausea Pantoprazole Sodium 40 mg 08/29/23 09:00 08/31/23 09:45 Pantoprazole 40 Mg Tablet PO 40 mg QAM HOPE Administration Polyethylene Glycol 17 gm 08/29/23 09:00 08/31/23 09:46 Polyethylene Glycol 3350 17 Gm Powd.Pack PO Not Given DAILY HOPE Radiology Results: ITS Impressions Upper Quadrant Ultrasound 08/28/23 23:37 IMPRESSION: Status post cholecystectomy. Otherwise unremarkable right upper quadrant ultrasound findings. Chest X-Ray 08/29/23 05:50 IMPR
[2023-08-31 12:00] VITALS: BP 118/63; PULSE 80; RESP 16; TEMP 36.7; O2SAT 97
--- NOTE | 2023-08-31 14:36 | PM.DS ---
DS: Admitting Diagnosis Discharge Date 08/31/23 Admitting Diagnosis Abdominal pain DS: Discharge Diagnosis Discharge Diagnosis (1) SBO (small bowel obstruction): Code(s): K56.609 - Unspecified intestinal obstruction, unspecified as to partial versus complete obstruction Status: Acute (2) Essential (primary) hypertension: Code(s): I10 - Essential (primary) hypertension Status: Acute (3) Obesity, unspecified: Qualifiers: Obesity type: due to excess calories Obesity classification: adult class 3 (BMI >= 40) Serious obesity comorbidity presence: with serious comorbidity Body mass index: BMI 40.0-44.9 Qualified Code(s): E66.01 - Morbid (severe) obesity due to excess calories; Z68.41 - Body mass index [BMI]40.0-44.9, adult Code(s): E66.9 - Obesity, unspecified Status: Acute (4) Major depressive disorder, single episode, unspecified: Code(s): F32.9 - Major depressive disorder, single episode, unspecified Status: Acute (5) Chronic bilateral low back pain without sciatica: Code(s): M54.5 - Low back pain; G89.29 - Other chronic pain Status: Acute (6) Elevated LFTs: Code(s): R79.89 - Other specified abnormal findings of blood chemistry Status: Acute DS: Summary Hospital Course Reason for hospitalization: 63-year-old female with history of abdominal malignancy, hypertension is presenting with abdominal pain and currently being treated for small-bowel obstruction. Please see H&P for details. Hospital Course: Patient has a hx of pSBO. She presented with abd pain and imaging showing SBO. She had NGT placed and bowel rest. CT scan showing gradual transition point in the right abdomen. She has SBS with dilated mid small bowel with normal transit time to the colon. GenSurg consulted and appreciate their input. She was having BMs. NGT removed and clear liquid diet started. Diet advanced. LFTs elevated on admission with AST 292, ALT 209, TB 1.[address] scan showing mild intrahepatic biliary duct dilation 2nd to CCY. Related to ileus and biliary stasis? Levels tending down. She had clinical improvement and was able to be discharged on 08/31/23. Status at Discharge Cognitive/behavioral status at discharge: stable Time Spent with Patient Time attestation: Total time spent providing and/or coordinating discharge services: 35 minutes Time spent: Greater than 30 minutes Exam Narrative: AF 98.1 118/63 80 16 97% ra Gen - NARD Chest - CTA bilaterally, nml RR CV - RRR S1/S2 Abd - Soft, NT/ND, Positive BS Ext - No pedal edema Psych - Nml mood and affect Skin - Warm and dry DS: Data Data Completed and Pending Labs on day of discharge: Labs from last 24 hours 08/31/23 06:37 WBC 6.9 RBC 3.87 L Hgb 11.9 L Hct 38.0 MCV 98.2 MCH 30.7 MCHC 31.3 L RDW 12.7 Plt Count 267 MPV 9.6 Immature Gran % (Auto) 0.4 Neut % (Auto) 58.6 Lymph % (Auto) 31.5 Oliver % (Auto) 6.5 Eos % (Auto) 2.6 Baso % (Auto) 0.4 Lymph # (Auto) 2.17 Oliver # (Auto) 0.5 Eos # (Auto) 0.2 Baso # (Auto) 0.0 Abs Immat Gran (auto) 0.03 Absolute Neuts (auto) 4.0 Absolute Nucleated RBC 0.0 Nucleated RBC % 0.0 Sodium 138 Potassium 3.4 Chloride 106 Carbon Dioxide 30 Anion Gap 2 L BUN 19 H Creatinine 0.70 Estim Creat Clear Calc 79 Estimated GFR > 60 Glucose 92 Calcium 8.4 Total Bilirubin 1.4 H AST 47 H ALT 93 H Alkaline Phosphatase 70 Total Protein 6.0 L Albumin 3.3 L Discharge Plan Discharge Attending physician on discharge: Dylan Flynn Consulting providers: Daily Negro; Samantha Nowak Discharging Clinician: Dylan Flynn Anticipated Discharge Date/Time: 08/31/23 14:43 Patient Disposition: Home, Self-Care Activity: as tolerated Diet: heart healthy Discharge Instructions: Contact your doctor or call 911 and come to the Emergency Room if you have recurrent
--- NOTE | 2023-08-31 16:58 | PC.NURSE ---
Carisa Blood performed patient's assessment and care on 08/31/23. I have reviewed her assessments and agree with her charting.
== END 2023-08-31 17:00 | disposition home or self-care (01) | DRG 390 ==
LOC: ANHED 08-29 03:30 → ANH3MEDSUR 08-29 05:04
PROVIDERS: Student in an Organized Health Care Education/Training Program; Admitting Provider Family Medicine; Emergency Provider Physician Assistant; PCP Emergency Medicine; Visit Provider Internal Medicine
DX: K56.609 Unspecified intestinal obstruction, unspecified as to partial versus complete obstruction (principal); I10 Essential (primary) hypertension; J45.909 Unspecified asthma, uncomplicated; E66.9 Obesity, unspecified; M51.36 Other intervertebral disc degeneration, lumbar region; M17.12 Unilateral primary osteoarthritis, left knee; M54.59 Other low back pain; G89.29 Other chronic pain; R79.89 Other specified abnormal findings of blood chemistry; F32.9 Major depressive disorder, single episode, unspecified; Z96.659 Presence of unspecified artificial knee joint; Z79.82 Long term (current) use of aspirin; Z87.891 Personal history of nicotine dependence
CPT/HCPCS: 36415; 71045; 74177; 74250; 76705; 80053; 81001; 83605; 83690; 83735; 84100; 84484; 85025; 85610; 85730; 93005; 96361; 96374; 96375; 96376; 99285; A9270; C9113; J1170; J1200; J2270; J2405; J3480; J7030; J7040; Q9967

== ENCOUNTER 2023-10-09 05:50 | Day surgery (SDC) | payer MEDICARE, SELFPAY ==
[2023-08-01 12:06] VITALS: BMI 39.0
[2023-10-03 09:09] VITALS: BMI 39.1
[2023-10-09 06:20] VITALS: BP 142/80; PULSE 84; RESP 16; TEMP 36.8; O2SAT 96
[2023-10-09] MEDS: LACTATED RINGERS 1,000 ML 150 ML IV CONT (06:30)
--- NOTE | 2023-10-09 07:20 | PM.HPGS ---
History of Present Illness History of Present Illness Consent: Risks, benefits, and alternatives have been discussed and questions answered. Patient agrees to proceed with procedure. Chief complaint: Unspecified Abdominal Pain, Fam hx of colon cancer Narrative: Tammi Jimenez is a 63 year old female Presents for both colonoscopy and EGD. Patient father had colon cancer. Most recent colonoscopy was 5 years ago. As rather vague upper abdominal pain. 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 Recently admitted to the hospital with a small-bowel obstruction from adhesions that resolved spontaneously. Presents today for both colonoscopy and EGD. Review of Systems Review of Systems: review of systems is noncontributory. 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 ct no nodules Surgical History Surgical History H/O resection of small bowel H/O total knee replacement H/O umbilical hernia repair History of appendectomy History of hysterectomy History of incisional hernia repair History of laparoscopic cholecystectomy Family History Family History Sibling Family history of lung cancer Mother Diabetes mellitus Father Carcinoma of colon Other Hypertension Tuberculosis Social History Social History Smoking packs per day: 0.5 Smoking cigarettes per day: 10.0 Years smoked: 21 Smoking pack-years: 10.50 Smoking status: Former smoker Tobacco type: cigarettes Second hand tobacco smoke exposure: No Smoking end date: 11/20/98 Additional smoking assessment comments: 1/2 ppd cigarettes x23 years Alcohol intake: never Substance use: never Substance use type: does not use Lack of Transportation: No Lack of Food: Never True Current Housing: I Have Housing Concerned About Future Housing: No Difficulty Paying Gas/Electric Bills: No Difficulty Paying for Meds: No Currently Unemployed: No Education: Trade/Vocational Certificate Difficulty w/ Childcare or Family Care: No Living arrangements: with family Additional living arrangements comments: Pt lives with at home Occupation/Education: retired 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 Spiritual care concerns: No Meds Home Medications and Allergies Home Medications Medication Instructions Recorded Confirmed Type albuterol sulfate 90 mcg/actuation 2 inh inhalation PRN 12/23/21 10/09/23 History aerosol inhaler (ProAir HFA) aspirin 81 mg tablet 81 mg PO DAILY 12/23/21 10/09/23 History cpmeyqds-[id number] ac 400 1 tablet PO DAILY 12/23/21 10/09/23 History mcg-calcium carb 500 mg-vit K1 20 mcg tablet (Women's 50 Plus Multivitamin) polyethylene glycol 3350 17 gram 1 g PO DAILY 12/23/21 10/09/23 History oral powder packet (Miralax) fluticasone propionate 50 See Rx Instructions .Route 03/07/22 10/09/23 Rx mcg/actuation nasal .COMPLEX #16 grams spray,suspension cyclobenzaprine 10 mg tablet See Rx Instructions .Route 12/12/22 10/09/23 Rx .COMPLEX #50 tabs pantoprazole 40 mg tablet,delayed 40 mg PO QAM #90 tabs 04/28/23 10/09/23 Rx release alprazolam 1 mg tablet 1 mg PO HS #90 tabs 08/01/23 10/09/23 Rx duloxetine 60 mg capsule,delayed See Rx Instructions .Route 08/22/23 10/09/23 Rx relea
--- NOTE | 2023-10-09 07:25 | WPDANESEPPF ---
Anes - Initial Pre Proc Eval Procedure: Operation Date: 10/09/23 07:30 Proposed Procedures p Esophagogastroduodenoscopy - Douglas Preston MD s Diagnostic Colonoscopy - Douglas Preston MD Date/Time: 10/09/23 07:25 Surgeon: Douglas Preston MD Pre Op Diagnosis: Unspecified Abdominal Pain, Fam hx of colon cancer Patient Data Age: 63 Gender: F Height: 1.57 m Weight: 96.65 kg Last Vital Signs Temp 36.8 C 10/09/23 06:20 Pulse 84 10/09/23 06:20 Resp 16 10/09/23 06:20 BP 142/80 H 10/09/23 06:20 Pulse Ox 96 10/09/23 06:20 O2 Del Method Room Air 10/09/23 06:20 Allergies Allergy/AdvReac Type Severity Reaction Status Date / Time Iodinated Contrast Media Allergy Intermediate rash Verified 10/09/23 06:24 erythromycin base Allergy Mild stomach Verified 10/09/23 06:24 upset adhesive AdvReac Intermediate RASH/REDNESS Verified 10/09/23 06:24 AT SITE,blisters Home Medications Medication Instructions Recorded Confirmed Type albuterol sulfate 90 mcg/actuation 2 inh inhalation PRN 12/23/21 10/09/23 History aerosol inhaler (ProAir HFA) aspirin 81 mg tablet 81 mg PO DAILY 12/23/21 10/09/23 History bsncciya-ome-zaznl ac 400 1 tablet PO DAILY 12/23/21 10/09/23 History mcg-calcium carb 500 mg-vit K1 20 mcg tablet (Women's 50 Plus Multivitamin) polyethylene glycol 3350 17 gram 1 g PO DAILY 12/23/21 10/09/23 History oral powder packet (Miralax) fluticasone propionate 50 See Rx Instructions .Route 03/07/22 10/09/23 Rx mcg/actuation nasal .COMPLEX #16 grams spray,suspension cyclobenzaprine 10 mg tablet See Rx Instructions .Route 12/12/22 10/09/23 Rx .COMPLEX #50 tabs pantoprazole 40 mg tablet,delayed 40 mg PO QAM #90 tabs 04/28/23 10/09/23 Rx release alprazolam 1 mg tablet 1 mg PO HS #90 tabs 08/01/23 10/09/23 Rx duloxetine 60 mg capsule,delayed See Rx Instructions .Route 08/22/23 10/09/23 Rx release .COMPLEX #90 caps lisinopril 20 1 tablet PO DAILY #90 tabs 08/22/23 10/09/23 Rx mg-hydrochlorothiazide 12.5 mg tablet Patient hx anesthesia problems: none Family hx anesthesia problems: none Results Review: All pre-operative results and documents have been reviewed as part of the pre-operative evaluation. 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 ct -2028 no nodules Surgical History Surgical History H/O resection of small bowel H/O total knee replacement H/O umbilical hernia repair History of appendectomy History of hysterectomy History of incisional hernia repair History of laparoscopic cholecystectomy Family History Family History Sibling Family history of lung cancer Mother Diabetes mellitus Father Carcinoma of colon Other Hypertension Tuberculosis Social History Social History Smoking packs per day: 0.5 Smoking cigarettes per day: 10.0 Years smoked: 21 Smoking pack-years: 10.50 Smoking status: Former smoker Tobacco type: cigarettes Second hand tobacco smoke exposure: No Smoking end date: 11/20/98 Additional smoking assessment comments: 1/2 ppd cigarettes x23 years Alcohol intake: never Substance use: never Substance use type: does not use Lack of Transportation: No Lack of Food: Never True Current Housing: I Have Housing Concerned About F
[2023-10-09 07:52] VITALS: BP 109/67; PULSE 83; RESP 16; O2SAT 98
[2023-10-09 08:02] VITALS: BP 126/79; PULSE 74; RESP 18; O2SAT 99
--- NOTE | 2023-10-09 08:08 | WPDANESPN ---
Anes - Prog Note Post-Op Date/Time: 10/09/23 08:08 Cardiovascular status: normal Respiratory status: normal Airway patency: baseline Mental status: baseline Post-Op hydration status: normal Vital Signs: Last Vital Signs Temp 36.8 C 10/09/23 06:20 Pulse 83 10/09/23 07:52 Resp 16 10/09/23 07:52 BP 109/67 10/09/23 07:52 Pulse Ox 98 10/09/23 07:52 O2 Del Method Room Air 10/09/23 07:52 Pain Score (VAS): 0/10 I/O: Intake & Output 10/08/23 10/09/23 10/09/23 23:59 07:59 15:59 Intake Total 600 200 Balance 600 200 Patient Feedback: Patient satisfied with anesthetic care.
[2023-10-09 08:12] VITALS: BP 119/65; PULSE 68; RESP 18; O2SAT 99
== END 2023-10-09 08:35 | disposition home or self-care (01) ==
PROVIDERS: PCP Emergency Medicine; Visit Provider Internal Medicine Gastroenterology
PROC: 0DJ08ZZ Inspection of Upper Intestinal Tract, Via Natural or Artificial Opening Endoscopic (ICD-10-PCS; CPT 43235; principal; 2023-10-09 07:30)
PROC: 0DJD8ZZ Inspection of Lower Intestinal Tract, Via Natural or Artificial Opening Endoscopic (ICD-10-PCS; CPT 45378; 2023-10-09 07:30)
DX: Z80.0 Family history of malignant neoplasm of digestive organs (principal); R10.13 Epigastric pain; K64.8 Other hemorrhoids
CPT/HCPCS: 45378; 43239

== ENCOUNTER 2023-10-10 08:19 | Emergency (ER) | payer MEDICARE, SELFPAY ==
[2023-10-10 08:41] VITALS: BP 126/74; PULSE 84; RESP 16; TEMP 36.6; O2SAT 96
--- NOTE | 2023-10-10 09:07 | ED.EYEPROB ---
HPI - Eye Problem General Chief complaint: Eye Problems Stated complaint: Eye problems Time Seen by Provider: 10/10/23 09:07 Source: patient, RN notes reviewed and old records reviewed Mode of arrival: ambulatory Limitations: no limitations History of Present Illness HPI Narrative: 63 year old female who presents to [facility] care with complaints of pain to her right eye which started yesterday with swelling of right upper eyelid noted. Patient reports no change in vision, denies any drainage from her right eye, denies any itching of her right eye. No sclera or conjunctiva redness noted,small white looking lesion on upper eyelid mid aspect along lash line with upper right eyelid swollen. MD chief complaint: eye pain and other (swelling of eyelid upper) Onset (ago): day(s) (since yesterday) Location: right eye Eye Symptoms: pain and other (upper right eyelid swollen) Severity scale (1-10): 5 Treatments Prior to Arrival: none Related Data Home Medications Medication Instructions Recorded Confirmed albuterol sulfate 90 mcg/actuation 2 inh inhalation PRN 12/23/21 10/10/23 aerosol inhaler (ProAir HFA) aspirin 81 mg tablet 81 mg PO DAILY 12/23/21 10/10/23 quuphizo-clq-rnvpj ac 400 1 tablet PO DAILY 12/23/21 10/10/23 mcg-calcium carb 500 mg-vit K1 20 mcg tablet (Women's 50 Plus Multivitamin) polyethylene glycol 3350 17 gram 1 g PO DAILY 12/23/21 10/10/23 oral powder packet (Miralax) Allergies Allergy/AdvReac Type Severity Reaction Status Date / Time Iodinated Contrast Media Allergy Intermediate rash Verified 10/10/23 09:09 erythromycin base Allergy Mild stomach Verified 10/10/23 09:09 upset adhesive AdvReac Intermediate RASH/REDNESS Verified 10/10/23 09:09 AT SITE,blisters Review of Systems Review of Systems: CONSTITUTIONAL: Denies fever, chills, or sweats. EYES: Denies visual changes. Reports redness and swelling and pain to right eyelid, no itching or any drainage from right eye. ENT: Denies rhinorrhea, congestion, sore throat, or otalgia. CARDIOVASCULAR: Denies chest pain, palpitations, or edema. RESPIRATORY: Denies cough or dyspnea. SKIN: Denies rash or itching. 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 Major depressive disorder, single episode, unspecified Obesity, unspecified Pulmonary nodule following infection by Coccidioides ct no nodules Surgical History Surgical History H/O resection of small bowel H/O total knee replacement H/O umbilical hernia repair History of appendectomy History of hysterectomy History of incisional hernia repair History of laparoscopic cholecystectomy Family History Family History Sibling Family history of lung cancer Mother Diabetes mellitus Father Carcinoma of colon Other Hypertension Tuberculosis Social History Social History Smoking packs per day: 0.5 Smoking cigarettes per day: 10.0 Years smoked: 21 Smoking pack-years: 10.50 Smoking status: Former smoker Tobacco type: cigarettes Second hand tobacco smoke exposure: No Smoking end date: 11/20/98 Additional smoking assessment comments: 1/2 ppd cigarettes x23 years Alcohol intake: never Substance use: never Substance use type: does not use Lack of Transportation: No Lack of Food: Never True Current Housing: I Have Bill
== END 2023-10-10 09:22 | disposition home or self-care (01) ==
PROVIDERS: Emergency Provider Registered Nurse; PCP Emergency Medicine
DX: H00.011 Hordeolum externum right upper eyelid (principal); I10 Essential (primary) hypertension; J45.909 Unspecified asthma, uncomplicated; Z87.891 Personal history of nicotine dependence; Z79.899 Other long term (current) drug therapy; Z79.82 Long term (current) use of aspirin
CPT/HCPCS: 99213; G0463

== ENCOUNTER 2023-10-18 08:33 | Outpatient (CLI) | payer MEDICARE, SELFPAY ==
--- NOTE | ~2023-10-18 | MR_ITS ---
MRI of the right elbow CLINICAL HISTORY: Ulnar lesion, pain TECHNIQUE: Axial T1-weighted, T2 fat-sat, and T1 fat-sat images, sagittal T1-weighted and T2 fat-sat images, and coronal T1-weighted and T2 fat-sat images were performed. Following intravenous administr ation of 20 cc MultiHance gadolinium, T1-weighted fat-sat imaging was performed in the axial and sagi ttal planes. FINDINGS: Ulnar collateral ligament intact. Radial collateral ligament and the lateral ulnar collater al ligament are intact. There is mild tendinosis of the common extensor tendon origin at the lateral epicondyle humerus. Common flexor tendon origin is unremarkable. Bone marrow signals are unremarkable. No significant abnormality of the elbow joint itself. No signif icant joint effusion. There is severe tendinosis and probable partial tearing at the distal biceps tendon insertion at the radial tuberosity with mild surrounding soft tissue edema and fluid. There is associated postcontrast enhancement additional change in the central aspect of the supinator muscle extending to the biceps tendon sheath distally. Brachialis and triceps tendons are intact. Ulnar neurovascular bundle appears unremarkable. IMPRESSION: Severe tendinosis with partial tearing and tenosynovitis at the distal biceps tendon insertion region . Additional enhancing edema of the central aspect of the supinator muscle, compatible with nonspecific myositis. Reviewed, dictated and finalized at [facility]. [employer] IMPRESSION: Severe tendinosis with partial tearing and tenosynovitis at the distal biceps t endon insertion region. Additional enhancing edema of the central aspect of the supinator muscle, sridhar tible with nonspecific myositis.
--- NOTE | ~2023-10-18 | MR_ITS ---
MRI of the right forearm CLINICAL HISTORY: Pain TECHNIQUE: Axial T1-weighted, T2 fat-sat, and T1 fat-sat images, coronal T1-weighted and T2 fat-sat i mages, and sagittal T1-weighted and T2 fat-sat images were performed. Following intravenous administr ation of 20 cc MultiHance gadolinium, T1-weighted fat-sat imaging was performed in the axial and sagi ttal planes. FINDINGS: Bone marrow signals are unremarkable. Visualized joint spaces are grossly preserved. There is edematous change of the central aspect of the supinator muscle with associated postcontrast enhancement (axial postcontrast images 31-36). There is additional enhancement fluid distention of th e very distal biceps tendon sheath, with severe tendinosis of the distal biceps tendon. Remaining vis ualized musculature and tendons are unremarkable. No other soft tissue mass or fluid collection evide nt. Subcutaneous soft tissues are unremarkable. IMPRESSION: Enhancing edematous change of the central aspect of the supinator muscle, as detailed above. This cou ld reflect nonspecific myositis, including possibility of the posterior interosseous nerve entrapment syndrome. Severe tendinosis distal biceps tendon with associated distal biceps tenosynovitis. Reviewed, dictated and finalized at location . TTER HAND IMPRESSION: Enhancing edematous change of the central aspect of the supinator muscle, as de tailed above. This could reflect nonspecific myositis, including possibility of the posterior interosseous nerve entrapment syndrome. Severe tendinosis distal biceps tendon with associated distal biceps tenosynovi tis.
--- NOTE | 2023-10-18 11:15 | NEURO_ITS ---
Impression: # Complains of numbness of right hand. # Normal Nerve Conduction Study. # No Carpal Tunnel Syndrome or ulnar neuropathy. # Normal needle/EMG. Nerve Conduction Studies Anti Sensory Summary Table Stim Site NR Peak (ms) P-T Amp (?V) Site1 Site2 Delta-P (ms) Dist (cm) Archie (m/s) Right Median Anti Sensory (2-3nd Digit) Wrist 3.0 61.2 Wrist 2-3nd Digit 3.0 14.0 47 Wrist 2.9 70.9 Wrist 2-3nd Digit 3.0 14.0 47 Right Radial Anti Sensory (Base 1st Digit) Wrist 2.0 20.4 Wrist Base 1st Digit 2.0 0.0 Right Ulnar Anti Sensory (5th Digit) Wrist 2.2 49.4 Wrist 5th Digit 2.2 14.0 64 Motor Summary Table Stim Site NR Onset (ms) O-P Amp (mV) Site1 Site2 Delta-0 (ms) Dist (cm) Archie (m/s) Right Median Motor (Abd Poll Brev) Wrist 3.1 8.2 Elbow Wrist 4.3 26.0 60 Elbow 7.4 5.9 Right Ulnar Motor (Abd Dig Minimi) Wrist 2.2 6.2 A Elbow Wrist 4.6 27.0 59 A Elbow 6.8 5.2 F Wave Studies NR F-Lat (ms) L-R F-Lat (ms) Right Median (Mrkrs) (Abd Poll Brev) 27.13 Right Ulnar (Mrkrs) (Abd Dig Min) 26.64 EMG Side Muscle Nerve Root Ins Act Fibs Amp Dur Recrt Comment Right 1stDorInt Ulnar C8-T1 Nml Nml Nml Nml Nml Right Ext Indicis Radial (Post Int) C7-8 Nml Nml Nml Nml Nml Right Ext Digitorum Radial (Post Int) C7-8 Nml Nml Nml Nml Nml Right BrachioRad Radial C5-6 Nml Nml Nml Nml Nml Right PronatorTeres Median C6-7 Nml Nml Nml Nml Nml Right Abd Poll Brev Median C8-T1 Nml Nml Nml Nml Nml MTDD
== END 2023-10-18 08:34 | disposition home or self-care (01) ==
PROVIDERS: PCP Emergency Medicine; Visit Provider Emergency Medicine
DX: G56.21 Lesion of ulnar nerve, right upper limb (principal); M79.601 Pain in right arm; R20.0 Anesthesia of skin; S59.911A Unspecified injury of right forearm, initial encounter; X58.XXXA Exposure to other specified factors, initial encounter
CPT/HCPCS: 73220; 73223; 95886; 95909; A9577

== ENCOUNTER 2023-10-23 13:15 | Outpatient (RCR) | payer MEDICARE, SELFPAY ==
--- NOTE | 2023-09-13 16:59 | OPREHPOC ---
Outpatient Therapy Plan of Care This is a Multidisciplinary Plan of Care that may contain components documented by all disciplines (PT, OT, and ST.) PT Problem 1 PT Problem #1 Knowledge Deficit PT Goal 1 Goal Pt to be IND with issued HEP. Target Visit 4 PT Problem 2 PT Problem #2 Pain PT Goal 1 Goal Pt to report R arm pain no greater than 3/10 in the last week. Target Visit 4 PT Goal 2 Goal Pt to reports 75% improvement in overall symptoms. 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 Target Visit 4 PT Problem 4 PT Problem #4 Impaired Range of Motion PT Goal 1 Goal Pt to improve R wrist motion equal to L wrist motion. Target Visit 4 PT Problem 5 PT Problem #5 Impaired Strength PT Goal 1 Goal Pt to be able to lift her grandchild without an increase in symptoms. Target Visit 4
--- NOTE | 2023-09-13 17:00 | PTOPEVAL1 ---
Assessment and note entered by Deven Altman, PT, DPT Evaluation Information Assessment Status Evaluation Diagnosis R arm pain Onset 1 month Subjective Information Pt states about a month ago she was playing volleyball with her family and hyperextended her wrist, she states she felt a pop. She states at that moment it felt like her arm was on fire. She states her sensation and pain is just not improving. She states her pain is mainly in the anterior elbow, up to her biceps, and with supination. 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 She said her worse pain is with elbow extension and forearm supination. Reported Pain Level Pain Score 5: Self Report Assessment PT Clinical Summary Tammi presents to therapy today for her initial evaluation with a diagnosis of a R ulnar nerve lesion. Today she reports tingling and constant pain throughout her R forearm. She demonstrates decreased conservation assistant strength, position neutral tension test, and decreased wrist motions when an extended elbow. Functional strength is limited by pain. Skilled therapy services are indicated for pain management, strengthening, improve functional mobility, and to return to OF. Plan of Care Interventions Electrical Stimulation,Hot Pack/Cold Pack, Intermittent Compression,Manual Therapy,Neuro Re- education,Patient/Caregiver Educati,Therapeutic Activities,Therapeutic Exercise PT Services Indicated Yes Treatment Frequency and 1x/wk for 4 visits Duration These treatments will address the objective and functional deficits as defined above. The patient will be advanced safely and appropriately in order for the patient to progress towards his/her prior level of function. Additional exercises will be introduced and as well as a comprehensive home exercise program upon discharge, if needed, ?to ensure carryover of functional gains achieved in the clinic. This treatment plan has been reviewed and agreement upon by the patient.
--- NOTE | 2023-09-22 08:43 | PCPTNOTE ---
Patient called and canceled this date.
--- NOTE | 2023-11-22 08:22 | PTOPDC ---
Assessment and note entered by Deven Altman, PT, DPT Evaluation Information Assessment Status Discharge - Pt Not Present Diagnosis R arm pain Onset 1 month Subjective Information Called and spoke to pt to follow up, she states she had surgery 2 weeks ago. She will need to be evaluated by an OT once she is released for therapy. Assessment PT Clinical Summary Pt completed 5 visits of skilled therapy from and 10/23/23. She will be discharged at this time d/t having surgery and needing a new order.
== END 2023-11-22 08:44 | disposition home or self-care (01) ==
LOC: ANHGOSHPT 13:15
PROVIDERS: PCP Emergency Medicine; Visit Provider Emergency Medicine
DX: M79.601 Pain in right arm (principal); G56.21 Lesion of ulnar nerve, right upper limb; R20.0 Anesthesia of skin
CPT/HCPCS: 97110; 97140; 97161

== ENCOUNTER 2023-11-03 12:07 | Outpatient (CLI) | payer MEDICARE, SELFPAY ==
--- NOTE | 2023-11-03 | ECG_ITS ---
Measurements Intervals [place] Rate: 71 P: 43 NC: 175 QRS: 25 QRSD: 83 T: -9 QT: 374 QTc: 407 Interpretive Statements SINUS RHYTHM NONSPECIFIC T-WAVE ABNORMALITY BORDERLINE ECG COMPARED TO ECG 08/28/2023 23:46:01 NO SIGNIFICANT CHANGES Electronically Signed On 11-03-2023 14:15:29 FLEET SALESPERSON by Davin Kirby M.D.
[2023-11-03 13:19] LABS: Anion Gap 4 mmol/L (8-16); Blood Urea Nitrogen 12 mg/dL (7-17); Calcium 9.2 mg/dL (8.4-10.2); Carbon Dioxide 30 mmol/L (22-30); Chloride 103 mmol/L (98-107); Estimated Glomerular Filt Rate > 60; Glucose 93 mg/dL (65-110); Potassium 3.6 mmol/L (3.4-5.0); Sodium 137 mmol/L (137-145)
== END 2023-11-03 12:08 | disposition home or self-care (01) ==
LOC: ANHLAB 12:12
PROVIDERS: PCP Emergency Medicine
DX: Z01.818 Encounter for other preprocedural examination (principal)
CPT/HCPCS: 36415; 80048; 93005

== ENCOUNTER 2024-02-20 14:00 | Outpatient (RCR) | payer MEDICARE, SELFPAY ==
--- NOTE | 2023-12-19 15:43 | OTOPEVAL1 ---
Assessment and note entered by Dannie Palumbo, VANNESA/Jaret, CHT Evaluation Report 12/19/23 Diagnosis Tear of distal tendon of biceps brachii Subjective Information Patient is s/p repair 11/07/23. She presents today in a hinge elbow brace set at 30 extension lock. Reporting no pain, just muscle soreness proximally at the shoulder/upper traps. She is right handed. She is eager to be able to lift her grandkids again and use her right hand for cooking, cleaning , and household tasks. She has been crocheting and keeping her wrist limber. Reports multimedia author brace wear unless she is showering. She states the brace doesn't have a great fit and frequently slides down. She also is reporting intermittent tingling in her small finger. Assessment OT Clinical Summary Patient referred to OT s/p distal biceps brachii repair x6 weeks ago. She was instructed in ROM HEP and isometrics for the deltoid. She demonstrates excellent understanding of all materials. Continued follow up indicated to progress to passive ROM/stretching as indicated, followed by progressive strengthening, therapeutic activities, and manual therapy to facilitate optimal functional use of her right, dominant UE. Plan of Care Interventions Therapeutic Exercise,Manual Therapy,Neuro Re- education,Therapeutic Activities,Hot Pack/Cold Pack OT Services Indicated Yes Treatment Frequency and 1x/week for 4 visits Duration These treatments will address the objective and functional deficits as defined above. The patient will be advanced safely and appropriately in order for the patient to progress towards his/her prior level of function. Additional exercises will be introduced and as well as a comprehensive home exercise program upon discharge, if needed, ?to ensure carryover of functional gains achieved in the clinic. This treatment plan has been reviewed and agreement upon by the patient.
--- NOTE | 2024-01-30 15:47 | OTOPPROG ---
Assessment and note entered by Dannie Palumbo, VANNESA/Jaret, CHT Evaluation Information Assessment Status Progress Diagnosis Tear of distal tendon of biceps brachii Onset s/p repair 11/07/23 Subjective Information Patient presents today, 12 weeks post op, reporting that she hasn't worn the brace for 3 weeks and she's doing well. Still favoring the left arm for heavier tasks such as vacuuming. No pain. No paresthesia. ROM of the right UE is WNL. Assessment OT Clinical Summary Patient referred to OT s/p distal biceps brachii repair x12 weeks ago. She was instructed today in light strengthening of the right shoulder, elbow, forearm, and wrist. She completes with excellent form and no pain. Recommending she continue with this home exercise plan and to follow up with OT in 3 weeks. Plan of Care Interventions Therapeutic Exercise,Manual Therapy,Neuro Re- education,Therapeutic Activities,Hot Pack/Cold Pack OT Services Indicated Yes Treatment Frequency and Follow up in 3 weeks Duration These treatments will address the objective and functional deficits as defined above. The patient will be advanced safely and appropriately in order for the patient to progress towards his/her prior level of function. Additional exercises will be introduced and as well as a comprehensive home exercise program upon discharge, if needed, ?to ensure carryover of functional gains achieved in the clinic. This treatment plan has been reviewed and agreement upon by the patient.
--- NOTE | 2024-02-20 14:35 | OTOPDC ---
Assessment and note entered by Dannie Palumbo, OTR/L, CHT OT D/C Summary 02/20/24 Diagnosis Tear of distal tendon of biceps brachii Onset s/p repair 11/07/23 Subjective Information Patient presents today, 15 weeks post op, reporting that she hasn't worn the brace for 6 weeks and she's doing well. No pain. No soreness with use. ROM of the right UE is WNL. Strength is WNL. She reports she has been strengthening without difficulty. Sometimes feels some popping in the elbow with the first few reps of shoulder abduction strengthening, but it goes away. Unable to recreate this in the clinic. Reported Pain Level Pain Score 0: Self Report Assessment OT Clinical Summary Patient referred to OT s/p distal biceps brachii repair x15 weeks ago. She has progressed to normal ROM and strength of the right UE. She is independent with progressive strengthening HEP and doing very well with this. No further skilled OT indicated at this time.
== END 2024-02-20 15:24 | disposition home or self-care (01) ==
LOC: ANHGOSHOT 14:00
PROVIDERS: PCP Emergency Medicine; Visit Provider Orthopaedic Surgery
DX: S46.291D Other injury of muscle, fascia and tendon of other parts of biceps, right arm, subsequent encounter (principal)
CPT/HCPCS: 97110; 97165

== ENCOUNTER 2024-03-02 07:34 | Outpatient (CLI) | payer MEDICARE, SELFPAY ==
--- NOTE | ~2024-03-02 | MR_ITS ---
EXAMINATION: MR thoracic spine wo con DATE: 03/02/2024 08:58 INDICATION: Other spondylosis with myelopathy, thoracic. TECHNIQUE: Magnetic resonance imaging (MRI) of the thoracic spine was performed without intravenous c ontrast. COMPARISON: None FINDINGS: Bone alignment is normal in thoracic spine. There is mild chronic anterior wedging of T7, T 11, and T12 vertebral bodies. There is decreased disc height at most levels, severe at T4-T5, T6-T7, and T9-T10. There is multilevel facet joint osteoarthritis, severe at many levels. There is mild neur al foraminal stenosis at many levels bilaterally. At T1-T2, there is a central extrusion with mild ce ntral canal stenosis. At T4-T5, there is a left central extrusion with mild central canal stenosis. A t T5-T6, the disc is bulging with mild central canal stenosis. At T6-T7, there is a central extrusion with mild central canal stenosis. The discs are bulging from T7-T8 through T12-L1 with mild central canal stenosis. The spinal cord signal intensity is normal. The conus medullaris is at L1. IMPRESSION: 1. Severe thoracic spondylosis. Reviewed, dictated and finalized at location E.
--- NOTE | ~2024-03-02 | MR_ITS ---
EXAMINATION: MR lumbar spine wo con DATE: 03/02/2024 08:58 INDICATION: Low back pain, unspecified. TECHNIQUE: Magnetic resonance imaging (MRI) of the lumbar spine was performed without intravenous con trast. Sequences included sagittal T2-weighted FSE, sagittal T2-weighted FS FSE, sagittal T1-weighted FSE, and axial T2-weighted FSE. COMPARISON: None currently available. FINDINGS: There is 9 degrees dextrocurvature of lumbar spine. There is 3 mm anterolisthesis of L4 on L5. There is mild chronic anterior wedging of T12 and L1 vertebral bodies. There is moderately decrea sed disc height at T11-T12, mildly decreased disc height at T12-L1, moderately decreased disc height at L1-L2, L2-L3, and L3-L4, mildly decreased disc at L4-L5, and moderately decreased disc height at L 5-S1. The distal spinal cord signal intensity is normal. The conus medullaris is at L1-L2. The follow ing disc levels are specifically discussed: L1-L2: The disc is bulging. There is severe bilateral facet joint osteoarthritis. There is mild bilat eral neural foraminal stenosis. There is mild central canal stenosis. L2-L3: The disc is bulging and has an annular fissure. There is severe bilateral facet joint osteoart hritis. There is mild bilateral neural foraminal stenosis. There is mild central canal stenosis. L3-L4: The disc is bulging and has an annular fissure. There is severe bilateral facet joint osteoart hritis. There is mild right and moderate left neural foraminal stenosis. There is mild central canal stenosis. L4-L5: The disc is bulging and has an annular fissure. There is severe bilateral facet joint osteoart hritis. There is mild bilateral neural foraminal stenosis. There is moderate central canal stenosis. L5-S1: The disc is bulging and has an annular fissure. There is severe bilateral facet joint osteoart hritis. There is mild bilateral neural foraminal stenosis. There is mild central canal stenosis. IMPRESSION: 1. Moderate lumbar spondylosis. Reviewed, dictated and finalized at location E.
== END 2024-03-02 07:35 | disposition home or self-care (01) ==
PROVIDERS: PCP Emergency Medicine; Visit Provider Emergency Medicine
DX: G89.29 Other chronic pain (principal); M47.14 Other spondylosis with myelopathy, thoracic region; M47.16 Other spondylosis with myelopathy, lumbar region; M54.50 Low back pain, unspecified
CPT/HCPCS: 72146; 72148

== ENCOUNTER 2024-03-05 09:30 | Outpatient (RCR) | payer MEDICARE, SELFPAY ==
--- NOTE | 2024-02-29 10:51 | OPREHPOC ---
Outpatient Therapy Plan of Care This is a Multidisciplinary Plan of Care that may contain components documented by all disciplines (PT, OT, and ST.) PT Problem 1 PT Problem #1 Knowledge Deficit PT Goal 1 Goal Pt to be IND with issued HEP Target Visit 8 PT Problem 2 PT Problem #2 Pain PT Goal 1 Goal Pt to report back pain no greater than 4/10 in the last week. Target Visit 8 PT Goal 2 Goal Pt to report 75% improvement in overall symptoms. Target Visit 8 PT Problem 3 PT Problem #3 Impaired Functional Mobil PT Goal 1 Goal Pt to report being able to stand for 30 mins without needing a rest break. Target Visit 8 PT Goal 2 Goal Pt to report being able to lift and carry 20lb from ground level without an increase in symptoms. Target Visit 8 PT Problem 4 PT Problem #4 Impaired Sensation PT Goal 1 Goal Pt to decline radicular symptoms in the last week. Target Visit 8
--- NOTE | 2024-02-29 10:51 | PTOPEVAL1 ---
Assessment and note entered by Deven Altman, PT, DPT Evaluation Information Assessment Status Evaluation Diagnosis low back pain Subjective Information Pt reports a long history of chronic back pain. She states a couple of weeks ago it felt like her back locked up. She states both legs are numb and both of her feet hurt. Sitting makes her pain worse. She reports pain from her mid thoracic spine down to her tail bone without a LADI. She states she cannot stand up straight d/t her pain. She declines any back surgeries. Reported Pain Level Pain Score 8: Self Report Assessment PT Clinical Summary Tammi presents to therapy today for her initial evaluation with a diagnosis of thoracic and lumbar spondylosis. Today she demonstrates postural asymmetries noted by an increased anterior pelvic tilt, RLE longer in supine, and increased lumbar lordosis. Muscle energy techniques helped to equalize LE alignment and improved lumbar ROM with re-assessment. She demonstrates decreased hip and core strength contributing to her poor posture. Skilled therapy services are indicated to address the deficits noted above, to manage pain, to improve stability, and to return to PLOF. Plan of Care Interventions Electrical Stimulation,Gait Training,Hot Pack/Cold Pack,Manual Therapy,Neuro Re-education,Patient/ Caregiver Educati,Therapeutic Activities, Therapeutic Exercise PT Services Indicated Yes Treatment Frequency and 2x/wk for 8 visits Duration These treatments will address the objective and functional deficits as defined above. The patient will be advanced safely and appropriately in order for the patient to progress towards his/her prior level of function. Additional exercises will be introduced and as well as a comprehensive home exercise program upon discharge, if needed, ?to ensure carryover of functional gains achieved in the clinic. This treatment plan has been reviewed and agreement upon by the patient.
--- NOTE | 2024-03-07 10:03 | PCPTNOTE ---
Patient canceled due to illness.
--- NOTE | 2024-03-12 10:53 | PCPTNOTE ---
Patient canceled appointment this date due to illness.
--- NOTE | 2024-03-14 13:43 | PCPTNOTE ---
Patient canceled this appointment due to being exposed to family member with shingles.
--- NOTE | 2024-03-22 10:45 | PCPTNOTE ---
Patient canceled due to contact with family member who has shingles.
--- NOTE | 2024-03-22 10:59 | PTOPDC ---
Assessment and note entered by Ash White, PT Evaluation Information Assessment Status Discharge - Pt Not Preset Diagnosis low back pain Subjective Information Spoke with patient regarding cancellations. She is currently caring for sick father and will cancel current treatments to be resumed at a later date with new order. Assessment PT Clinical Summary Patient to be discharged at this time by request in conjunction with cancellation policy. Plan of Care PT Services Indicated D/C to [facility]
== END 2024-03-22 14:45 | disposition home or self-care (01) ==
LOC: ANHGOSHPT 09:30
PROVIDERS: PCP Emergency Medicine; Visit Provider Emergency Medicine
DX: M47.14 Other spondylosis with myelopathy, thoracic region (principal); M47.16 Other spondylosis with myelopathy, lumbar region; M54.50 Low back pain, unspecified; G89.29 Other chronic pain
CPT/HCPCS: 97014; 97110; 97140; 97161; 97530; G0283

== ENCOUNTER 2024-07-04 10:11 | Outpatient (CLI) | payer MEDICARE, SELFPAY ==
[2024-07-04 13:55] LABS: Alanine Aminotransferase 26 U/L (6-35); Albumin Level 4.3 g/dL (3.5-5.1); Alkaline Phosphatase 82 U/L (38-126); Anion Gap 7 mmol/L (4-12); Aspartate Amino Transferase 47 U/L (14-36); Bilirubin,Total 1.1 mg/dL (0.2-1.3); Blood Urea Nitrogen 15 mg/dL (7-17); Calcium 9.3 mg/dL (8.4-10.2); Carbon Dioxide 31 mmol/L (22-30); Chloride 101 mmol/L (98-107); Cholesterol 159 mg/dL (0-200); Estimated Glomerular Filt Rate > 60; Glucose 103 mg/dL (65-110); HDL Direct 64 mg/dL; Potassium 3.8 mmol/L (3.4-5.0); Sodium 139 mmol/L (137-145); Triglycerides 84 mg/dL (<150)
[2024-07-04 14:07] LABS: LDL Cholesterol Direct 72 mg/dL
== END 2024-07-04 10:12 | disposition home or self-care (01) ==
LOC: ANHGOSHLAB 10:12
PROVIDERS: PCP Emergency Medicine; Visit Provider Emergency Medicine
DX: R79.89 Other specified abnormal findings of blood chemistry (principal); I10 Essential (primary) hypertension; F32.9 Major depressive disorder, single episode, unspecified
CPT/HCPCS: 36415; 80053; 80061; 84443

== ENCOUNTER 2024-10-01 07:44 | Day surgery (SDC) | payer MEDICARE, SELFPAY ==
[2024-09-26 13:43] VITALS: BMI 41.1
--- NOTE | ~2024-10-01 | XR_ITS ---
EXAMINATION: XR fluoroscopy no charge DATE: 10/01/2024 09:31 INDICATION: Radiculopathy, lumbosacral region. TECHNIQUE: 59 intraoperative fluoroscopic views of the lumbar spine were obtained. I was not present. Fluoroscopy exposure time was 17 seconds. COMPARISON: None. FINDINGS: There are needles for bilateral lumbar transforaminal epidural steroid injections at L5-S1. IMPRESSION: 1. Bilateral L5-S1 transforaminal epidural steroid injections. Reviewed, dictated and finalized at location A. LLMENT MANAGER
--- NOTE | 2024-10-01 05:27 | WPDHPUPDATE1 ---
History and Physical Update Update Date/Time: 10/01/24 05:27 History and Physical has been reviewed, including an updated exam of the patient. There are NO changes in the patient's condition. Risks, benefits, and alternatives have been discussed and questions answered. Patient agrees to proceed with procedure.
--- NOTE | 2024-10-01 05:28 | W.PM.PROC2 ---
Procedure Note - Detailed Date of Procedure 10/01/24 Pre-op Diagnosis Radiculopathy Lumbosacral Region Post-op Diagnosis Same Procedure Performed bilateral Lumbar Transforaminal Epidural Steroid Injection under Fluoroscopic Guidance and with Contrast Control at L5-S1. Surgeon Yrn Florez MD Anesthesia Local Description of Procedure INFORMED CONSENT: Risks, benefits and alternatives to the procedure were discussed in detail with the patient who expressed explicit understanding and consent to proceed. Patient was informed verbally and in written form regarding the risks associated with the procedure including the low risk of serious infection, bleeding/bruising, allergic reaction, nerve or organ injury, paralysis, procedural site pain or discomfort, worsening pain and/or mobility, failure to treat and/or disfigurement. The patient expressed explicit understanding and consent to proceed. All materials required for the procedure were available prior to procedure start. Site and side was marked prior to procedure and confirmed in the presence of the patient. PROCEDURE IN DETAIL: The patient was brought to the procedural suite and placed in the prone position. Patient was made comfortable with use of pillows under the head/chest, hips and ankles. Skin overlying the injection site was prepared broadly with ChloraPrep applicator and draped in a sterile manner. Aseptic technique was employed throughout. The endplates of the vertebral body at the site of interest were aligned in the AP view. Ipsilateral oblique angulation was utilized to better visualize the neuroforamen of interest. Local anesthesia was established by infiltration with approximately 5 mL of 0.5% PF lidocaine via a 1-1/2 inch 27-gauge needle. A 22-gauge 5.0 inch Chuck (pencil point) spinal needle was advanced until the needle approached the 6 o'clock position on the pedicle just superior to the exiting nerve root. on the right at L5-S1. Lateral view was utilized to confirm appropriate position of the needle tip within the superior and posterior portion of the respective foramen. In an AP view, 1 mL of Omnipaque 300 contrast medium was injected after negative aspiration for CSF, blood or other bodily fluid, showing appropriate neurogram without evidence of intravascular or intrathecal spread of contrast. Digital subtraction imaging was used with an additional 1ml of the same contrast medium to confirm absence of intravascular contrast spread. A 1mL solution containing 3 mg of betamethasone was injected after negative repeat aspiration. Appropriate spread of the injectate was confirmed with washout of previously injected contrast. No parasthesias were elicited. Needle was removed completely intact without difficulty. The same exact procedure was repeated for all remaining levels on the contralateral side, left L5-S1 neuroforamen, modified as necessary to accommodate for the new target location with identical findings and results and no evidence of complication. Images were saved and documented in the patient chart. Patient's skin was cleaned and sterile bandage applied. The patient tolerated the procedure well. The patient was transported to the recovery area in stable condition where they were observed for an appropriate amount of time prior to discharge, without evidence of complication. The patient was instructed to avoid excessive activity for the next 48 hours, including climbing and frequent use of stairs. Showers only for 48 hours. They were instructed not to drive or operate heavy machinery for 24 hours. They are to monitor for severe headaches, fevers, chills, night sweats, erythema/swelling at the site or any other signs of infection, bleeding/bruising, bowel or bladder changes as well as new pain, weakness or numbness in the upper or lower extremity. Should they notice these changes, they are instructed to call our office immediately or report directly to the nearest Emergency Department if no answer or if after posted office hours. COMPLICATIONS: None COMMENTS: None CONTRAST WASTED: 26 mL Omnipaque 300. STEROID WASTED: 0 mg of betamethasone. Complications No immediate complications Condition Stable Disposition Same day [facility] Billing Surgery - Charge Forward: Surgery Billing
[2024-10-01 08:43] VITALS: BP 137/68; PULSE 101; RESP 16; O2SAT 97
[2024-10-01 09:23] VITALS: BP 133/85; PULSE 84; RESP 14; O2SAT 94
[2024-10-01 09:27] VITALS: BP 125/75; PULSE 83; RESP 12; O2SAT 94
[2024-10-01] MEDS: BETAMETHASONE SODIUM PHOSPHATE PF INJ 6 MG/ML VIAL INFILTRATE (09:27)
[2024-10-01] MEDS: LIDOCAINE HCL 2% PF INJ 5 ML VIAL 1 ML INFILTRATE (09:31)
[2024-10-01] MEDS: LIDOCAINE HCL 1% PF INJ 5 ML VIAL XX (09:33)
[2024-10-01 09:34] VITALS: BP 139/73; PULSE 85; RESP 18; O2SAT 96
== END 2024-10-01 09:55 | disposition home or self-care (01) ==
PROVIDERS: PCP Family Medicine; Visit Provider Anesthesiology Pain Medicine
PROC: (CPT 64483; principal; 2024-10-01 10:00)
DX: M54.17 Radiculopathy, lumbosacral region (principal)
CPT/HCPCS: 64483 ×2; 99199

== ENCOUNTER 2024-10-20 12:14 | Emergency (ER) | payer MEDICARE, SELFPAY ==
--- NOTE | 2024-10-20 12:19 | ED_ITS ---
HPI - URI/Sore Throat General Chief Complaint: Upper Respiratory Infection Stated Complaint: FEVER/SINUS PRESSURE/COUGH/BODY ACHES Time Seen by Provider: 10/20/24 12:20 Source: patient Mode of arrival: ambulatory Limitations: no limitations History of Present Illness HPI Narrative: Tammi is a 64-year-old female patient presenting to the clinic today with complaints of fever, cough, body aches, and sinus pressure x2 weeks. She reports she is blowing out green nasal drainage. Has a lot of sinus pressure. Thinks she may have a sinus infection. She denies any shortness of breath. Feels as though drainage is going down the back of her throat. Developed fever 4 days ago. Highest fever was 102 ? F MD elicited complaint: fever, cough, nasal congestion and sinus pain Related Data Home Medications Medication Instructions Recorded Confirmed aspirin 81 mg tablet 81 mg PO DAILY 12/23/21 07/04/24 [id number] ac 400 1 tablet PO DAILY 12/23/21 10/01/24 mcg-calcium carb 500 mg-vit K1 20 mcg tablet (Women's 50 Plus Multivitamin) polyethylene glycol 3350 17 gram 1 g PO DAILY 12/23/21 09/26/24 oral powder packet (Miralax) Allergies Allergy/AdvReac Type Severity Reaction Status Date / Time Iodinated Contrast Media Allergy Intermediate rash Verified 10/20/24 12:26 erythromycin base Allergy Mild stomach Verified 10/20/24 12:26 upset adhesive AdvReac Intermediate RASH/REDNESS Verified 10/20/24 12:26 AT SITE,blisters Review of Systems Review of Systems: Pertinent positives per HPI. Patient denies any rash, visual changes, dizziness, shortness of breath, chest pain, palpitations, nausea, vomiting, diarrhea, constipation, abdominal pain, or any urinary issues. 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 ct no nodules Surgical History Surgical History H/O resection of small bowel H/O total knee replacement H/O umbilical hernia repair History of appendectomy History of hysterectomy History of incisional hernia repair History of laparoscopic cholecystectomy Family History Family History Sibling Family history of lung cancer Mother Diabetes mellitus Father Carcinoma of colon Other Hypertension Tuberculosis Social History Social History Smoking packs per day: 0.75 Smoking cigarettes per day: 15.0 Years smoked: 23 Smoking pack-years: 17.25 Smoking status: Former smoker Tobacco type: cigarettes Second hand tobacco smoke exposure: No Smoking end date: 11/20/98 Additional smoking assessment comments: QUIT 2000 Alcohol intake: never Substance use: never Substance use type: does not use Lack of Transportation: No Lack of Food: Never True Current Housing: I Have Housing Concerned About Future Housing: No Difficulty Paying Gas/Electric Bills: No Difficulty Paying for Meds: No Currently Unemployed: No Education: Trade/Vocational Certificate Difficulty w/ Childcare or Family Care: No Living arrangements: with family Additional living arrangements comments: Pt lives with at home Occupation/Education: retired Additional occupation/education comments: [employer] Spiritual care concerns: No Comments At the time of my signature, I reviewed and agree with the nursing past medical, surgical, social, and family history. There is no relevant family history pertinent to the patient complaint. Exam Narrative: General: Well-developed, morbidly obese in no apparent distress Head: Normocephalic, atraumatic Eyes: Pupils equally round and reactive to light bilaterally, EOM intact, sclera and conjunctive clear, no discharge, lids normal Ears: TMs intact and congested, ear canals clear, no drainage, grossly hearing normal. Nose: Nares patent, green nasal discharge, moderate inflammation, maxillary sinus tenderness. Mouth: Oral pharynx without lesions or masses, good dentition, MMM. Nasal drip Neck: Supple, trachea midline, no enlargement of anterior or posterior cervical nodes, no thyroid masses or goiter palpable. Cardio: Regular rate and rhythm, s1 and s2 normal, no murmur appreciated. Resp: Clear to auscultation bilaterally, no rhonchi, rales, wheezing or rubs Course Course Emergency Course: Portions of this record may have been created with voice recognition software. Level of Care: Express Care Visit Vital Signs Vital signs: Vital signs reviewed MDM - URI/Sore Throat MDM Narrative Medical decision making narrative: At the time of visit patient is resting comfortably on the exam table. Patient appears to be nontoxic. Labs: COVID and influenza testing was negative in the clinic today. Plan: I suspect patient has acute bacterial rhinosinusitis. Prescription for Augmentin and prednisone was sent to the pharmacy. Supportive measures were discussed with the patient and they voiced understanding discharge instructions and agrees to treatment plan. Return precautions reviewed Differential Diagnosis Differential diagnosis: Likely upper respiratory infection, otitis media, sinusitis, viral infection, bronchitis, influenza, pharyngitis and other (COVID) Discharge Plan Discharge Clinical Impression: Acute bacterial rhinosinusitis Patient Disposition: Home, Self-Care Condition: Stable Instructions: Antibiotic Form, Rhinosinusitis (ED) Additional Instructions: COVID and influenza testing was negative in the clinic today Take prescription medications only as prescribed-prednisone and Augmentin Increase fluids and stay well hydrated Tylenol/motrin for pain/fever Flonase and OTC antihistamines as directed Vicks vapor rub to open sinuses Sinus rinses for congestion Cepacol spray, cough drops, throat lozenges, warm tea with honey/lemon, gargle salt water to soothe throat BRAT diet for diarrhea Clear liquids x 24 hours then advance as tolerated for nausea/vomiting Go to the ED if you develop a worsening in your condition- high fever not controlled by Tylenol or Motrin, dehydration, weakness, lethargy, shortness of breath, or chest pain. Follow up with your PCP in 3-5 days if symptoms persist. Prescriptions: New prednisone 20 mg tablet 40 mg PO DAILY 5 Days Qty: 10 0RF amoxicillin-pot clavulanate 875-125 mg tablet 1 tablet PO Q12H 10 Days Qty: 20 0RF No Action aspirin 81 mg Tablet 81 mg PO DAILY Women's 50 Plus Multivitamin 400 mcg-500 mg calcium-20 mcg Tablet 1 tablet PO DAILY polyethylene glycol 3350 [Miralax] 17 gram Powder In Packet 1 g PO DAILY fluticasone propionate 50 mcg/actuation spray,suspension See Rx Instructions .ROUTE .COMPLEX Qty: 16 6RF Dose Instruction: SHAKE LIQUID AND USE 2 SPRAYS IN EACH NOSTRIL EVERY DAY Rx Instructions: SHAKE LIQUID AND USE 2 SPRAYS IN EACH NOSTRIL EVERY DAY lisinopril-hydrochlorothiazide 20-12.5 mg tablet 2 tablet PO DAILY Qty: 180 0RF cyclobenzaprine 10 mg tablet 10 mg PO TID PRN (Reason: muscle spasm) Qty: 50 1RF duloxetine 60 mg capsule,delayed release(DR/EC) See Rx Instructions .ROUTE .COMPLEX Qty: 90 1RF Dose Instruction: TAKE 1 CAPSULE BY MOUTH DAILY Rx Instructions: TAKE 1 CAPSULE BY MOUTH DAILY albuterol sulfate 90 mcg/actuation HFA aerosol inhaler 2 inh inhalation Q4-6H Qty: 8.5 3RF Patient Comments: SEASONAL tirzepatide (weight loss) 2.5 mg/0.5 mL solution 2.5 mg subcut WEEKLY 28 Days Qty: 2 0RF Rx Instructions: include injection supplies ICD: Z68.4 Patient [address] [place] [id number] [email or web address] email [phone] Patient phone number alprazolam 1 mg tablet 1 mg PO QHS Qty: 90 0RF Follow-up/Referrals: Davin Quiles MD [Primary Care Provider] - Time of Disposition: 12:34 Quality NIHSS Nursing Documentation ED NIHSS nursing documentation: reviewed/agree
[2024-10-20 12:26] VITALS: BP 106/80; PULSE 87; RESP 16; TEMP 36.4; O2SAT 97
[2024-10-20 12:46] LABS: EDINFLUASCREEN Negative (Negative); EDINFLUBSCREEN Negative (Negative)
[2024-10-20 12:47] LABS: EDCOVIDSCREEN Negative (Negative)
== END 2024-10-20 12:35 | disposition home or self-care (01) ==
PROVIDERS: Emergency Provider Nurse Practitioner Family; PCP Family Medicine
DX: J01.90 Acute sinusitis, unspecified (principal); Z20.822 Contact with and (suspected) exposure to COVID-19; Z87.891 Personal history of nicotine dependence; J45.909 Unspecified asthma, uncomplicated; I10 Essential (primary) hypertension; E66.9 Obesity, unspecified; Z68.41 Body mass index [BMI] 40.0-44.9, adult; Z85.068 Personal history of other malignant neoplasm of small intestine
CPT/HCPCS: 87426; 87804; 99213; G0463

== ENCOUNTER 2024-12-27 08:29 | Emergency (ER) | payer MEDICARE, SELFPAY ==
--- NOTE | 2024-12-27 08:36 | ED.URI ---
HPI - URI/Sore Throat General Chief Complaint: Upper Respiratory Infection Stated Complaint: congestion, cough, bodyaches Time Seen by Provider: 12/27/24 08:30 Source: patient Mode of arrival: ambulatory Limitations: no limitations History of Present Illness HPI Narrative: Patient is a 64-year-old female who presents with sore throat, productive cough, sinus pressure body aches, headache and fever for 4 days. Patient reports fever up to 102. Patient reports coughing fits at night make her have stress incontinence. Denies any nausea, vomiting, diarrhea with shortness of breath. Patient has taken [id number] medication without relief. Related Data Home Medications ?Medication ?Instructions ?Recorded ?Confirmed ?Last Taken ?Type aspirin 81 mg tablet 81 mg PO DAILY 12/23/21 07/04/24 10/08/23 History svhliwfg-ikj-blmvw ac 400 1 tablet PO DAILY 12/23/21 10/01/24 10/08/23 History mcg-calcium carb 500 mg-vit K1 20 mcg tablet (Women's 50 Plus Multivitamin) polyethylene glycol 3350 17 gram 1 g PO DAILY 12/23/21 09/26/24 08/28/23 History oral powder packet (Miralax) Allergies Allergy/AdvReac Type Severity Reaction Status Date / Time Iodinated Contrast Media Allergy Intermediate rash Verified 12/27/24 08:48 erythromycin base Allergy Mild stomach Verified 12/27/24 08:48 upset adhesive AdvReac Intermediate RASH/REDNESS Verified 12/27/24 08:48 AT SITE,blisters Review of Systems Review of Systems: All systems reviewed & are unremarkable except as noted in HPI and below Constitutional: Constitutional: Denies chills, Denies fatigue, Reports fever(s), Reports headache(s), Denies malaise and Denies weakness Eyes: Eyes: Denies blurry vision, Denies itchy eyes and Denies loss of vision ENT: Denies otalgia, Reports headache(s), Reports nasal congestion, Denies sinus pain, Reports sinus pressure and Denies sore throat Cardiovascular: Cardiovascular: Denies chest pain, Denies irregular heart rhythm and Denies dyspnea Respiratory: Respiratory: Reports cough and Denies dyspnea Gastrointestinal: Gastrointestinal: Denies abdominal pain, Denies diarrhea, Denies nausea and Denies vomiting Musculoskeletal: Musculoskeletal: Denies back pain, Reports myalgias and Denies arthralgias Integumentary/Breasts: Skin/Breast: Denies pruritus and Denies rash Neurologic: Denies headache(s), Denies loss of vision and Denies weakness Psychiatric: Psychiatric: Reports no additional psychiatric complaints Endocrine: Endocrine: Denies fatigue Allergic/Immunologic: Allergic/Immunologic: Denies itchy eyes PMFSH Past Medical History Medical History 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 nodules Surgical History Surgical History History of laparoscopic cholecystectomy History of hysterectomy H/O total knee replacement History of incisional hernia repair H/O umbilical hernia repair History of appendectomy H/O resection of small bowel Family History Family History Sibling Family history of lung cancer Mother Diabetes mellitus Father Carcinoma of colon Other Hypertension Tuberculosis Social History Social History Smoking packs per day: 0.75 Smoking cigarettes per day: 15.0 Years smoked: 23 Smoking pack-years: 17.25 Smoking status: Former smoker Tobacco type: cigarettes Second hand tobacco smoke exposure: No Smoking end date: 11/20/98 Additional smoking assessment comments: QUIT 2000 Alcohol intake: never Substance use: never Substance use type: does not use Do You Feel Safe in your Home?: Yes Lack of Transportation: No Lack of Food: Never True Current Housing: I Have Housing Concerned About Future Housing: No Difficulty Paying Gas/Electric Bills: No Difficulty Paying for Meds: No Currently Unemployed: No Education: Trade/Vocational Certificate Difficulty w/ Childcare or Family Care: No Living arrangements: with family Additional living arrangements comments: Pt lives with at home Occupation/Education: retired 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 There is no relevant family history pertinent to the presenting complaint. Exam Const: General: cooperative, healthy appearing, comfortable, no acute distress and well nourished Nutritional Appearance: well nourished Orientation/consciousness: patient oriented x3 Limitations: no limitations HENMT: Head: normal to inspection, normocephalic and atraumatic Ears: hearing grossly normal bilaterally, external ears normal, TM's normal bilaterally, EAC's normal and no periauricular adenopathy Face/Nose/Sinus: Normal external nose present, Abnormal mucous membranes and turbinates present erythematous bilateral and diffuse, normal facial exam, sinuses nontender and face symmetric Face and sinus: normal facial exam, sinuses nontender and face symmetric Mouth: Yes Normal oral and palatal mucosa present, Yes lip normal, Yes tongue normal, Yes Normal salivary glands and ducts present, Yes oropharynx normal and Yes moist mucous membranes Teeth and gingiva: dentition normal Throat: posterior oropharynx normal, tonsils normal and uvula midline Eyes: General: appearance normal, both eyes and all related structures Alignment and Position: alignment normal and position normal Periorbital: periorbital findings normal Eyelids: eyelids normal Pupils: Equal, round and reactive pupils present Neck: Neck: normal visual inspection, full ROM, no lymphadenopathy and supple Chest: Chest palpation & inspection: normal inspection of the chest and normal palpation of entire chest wall Resp: Effort & Inspection: normal respiratory effort and able to speak in complete sentences Auscultation: clear to auscultation bilaterally, no crackles, no rales, no rhonchi and no wheezes Cardio: Rate: regular rate Rhythm: regular rhythm Heart sounds: S1 normal heart sound present and S2 normal heart sound present GI: Inspection: normal to inspection Skin: General skin exam: normal color and no rashes or lesions noted Neuro: General: patient oriented x3 and moves all extremities Cranial nerves: Yes Equal, round and reactive pupils present Speech: normal speech Gait exam (Neuro): Normal gait present Extrem: General: normal to inspection, full ROM and no edema Psych: Appearance: grossly normal and well kempt Mental Status: mental status grossly normal Speech and movement: Normal speech and movement present Affect: normal affect Attitude: cooperative Thought process: Normal thought process present Course Course Emergency Course: Discharge instructions reviewed with patient, as well as provided in writing per nursing staff. The instructions also include specific and strict return/GO TO THE ER as well as f/u information. All questions have been answered, and the patient deny any further questions with discharge and discharge plan. Portions of this record may have been created with voice recognition software Level of Care: Express Care Visit Vital Signs Vital signs: Vital Signs Oxygen Delivery Room Air 12/27/24 08:43 Temperature 36.4 C 12/27/24 08:45 Pulse Rate 86 12/27/24 08:45 Respiratory Rate 16 12/27/24 08:45 Blood Pressure 116/63 12/27/24 08:45 Pulse Oximetry 99 12/27/24 08:45 Oxygen Delivery Room Air 12/27/24 08:43 Reviewed MDM - URI/Sore Throat MDM Narrative Medical decision making narrative: Pt well hydrated appearing, in no respiratory distress, hemodynamically stable. Recommend supportive care. The patient is stable at time of discharge the clinical impression was discussed and the patient was given the opportunity to ask questions, which were addressed as completely as possible given the information available at present. Anticipatory guidance and return to care precautions were discussed and the importance of primary care follow-up was stressed and encouraged. The patient voiced understanding of the plan, indications to return, and the need for follow-up. Differential diagnosis considered: [place] virus, strep pharyngitis, allergic rhinitis, upper respiratory tract infection, sinusitis, rhinosinusitis, nasopharyngitis. viral pharyngitis, otitis media, otitis externa, otitis effusion, foreign body, cerumen impaction, viral syndrome, and influenza.? Exam findings show no acute concerns or changes; patient is non-toxic appearing and is in no distress.? Patient is appropriate for outpatient treatment and follow-up.? Medical Records Attestation: I reviewed the patient's medical records. Lab Data Attestation: I reviewed the patient's lab results. Labs: Lab Results 12/27/24 Range/Units 08:58 POC Influenza A Ag Negative (Negative) POC Influenza B Ag Negative (Negative) POC SARS CoV-2 Ag Positive (Negative) Discharge Plan Discharge Clinical Impression: COVID Patient Disposition: Home, Self-Care Condition: Stable Instructions: COVID-19 (Coronavirus Disease 2019) (ED) Additional Instructions: Your rapid COVID test was positive today. While taking cough medicine with codeine you may not take your Flexeril or alprazolam The following recommendations have been made by the CDC and local Health Departments, regarding COVID-19: -wear a mask for 5 days, as long as your fever free for 24 hours you could return to work -Majority of mild to moderate cases can be treated at home, without hospitalization or prescription medications You do not need a negative test result to return to work/school, assuming the above recommendations have been met and you are not symptomatic. Treating symptoms for mild to moderate cases may include: -Alternate Tylenol and Motrin per package directions for fever or pain. -Antihistamine medication such as Benadryl/Zyrtec at night and Claritin/Vaishali during the day can help improve symptoms. -Use Flonase twice a day for 5 days then daily to help reduce the inflammation and dry up your sinuses. -You can also use Sudafed behind the pharmacy counter(12 or 24 hour). Be sure to drink plenty of water with these medications at least 8 ounces with every dose and it is important to drink 8 to 10 glasses of water per day. Water is a natural decongestant Take Motrin alternating with Tylenol for pain and fever alternating every 3 hours. 8 AM: Tylenol 11 AM: Ibuprofen 2 PM: Tylenol 5 PM: Ibuprofen 8 PM: Tylenol 11 PM: Ibuprofen 2 AM: Tylenol 5 AM: Ibuprofen Common Adult Symptoms: Fever/chills Cough Shortness of breath Fatigue, muscle aches Headache Loss of taste/smell Sore throat, congestion, runny nose GI symptoms (nausea, vomiting, diarrhea) Common Pediatric Symptoms Cough Fever GI symptoms (diarrhea, upset stomach, nausea, vomiting) Symptoms may differ in severity however, most cases do not require hospitalization. WHEN TO SEEK ER EVALUATION/TREATMENT: Severe/persistent shortness of breath or difficulty breathing Elevated, persistent fevers without resolution with fever-reducing medications Chest pain Extreme fatigue/lethargy Complications of pre-existing disease Patient Language: Citizen Of [place] Prescriptions: New codeine-guaifenesin 10-100 mg/5 mL liquid 5 ml PO Q6H 3 Days Qty: 60 0RF No Action prednisone 20 mg tablet 40 mg PO DAILY 5 Days Qty: 10 0RF aspirin 81 mg Tablet 81 mg PO DAILY Women's 50 Plus Multivitamin 400 mcg-500 mg calcium-20 mcg Tablet 1 tablet PO DAILY polyethylene glycol 3350 [Miralax] 17 gram Powder In Packet 1 g PO DAILY fluticasone propionate 50 mcg/actuation spray,suspension See Rx Instructions .ROUTE .COMPLEX Qty: 16 6RF Dose Instruction: SHAKE LIQUID AND USE 2 SPRAYS IN EACH NOSTRIL EVERY DAY Rx Instructions: SHAKE LIQUID AND USE 2 SPRAYS IN EACH NOSTRIL EVERY DAY cyclobenzaprine 10 mg tablet 10 mg PO TID PRN (Reason: muscle spasm) Qty: 50 1RF duloxetine 60 mg capsule,delayed release(DR/EC) See Rx Instructions .ROUTE .COMPLEX Qty: 90 1RF Dose Instruction: TAKE 1 CAPSULE BY MOUTH DAILY Rx Instructions: TAKE 1 CAPSULE BY MOUTH DAILY albuterol sulfate 90 mcg/actuation HFA aerosol inhaler 2 inh inhalation Q4-6H Qty: 8.5 3RF Patient Comments: SEASONAL alprazolam 1 mg tablet 1 mg PO QHS Qty: 90 0RF tirzepatide (weight loss) 5 mg/0.5 mL solution 5 mg subcut WEEKLY Qty: 2 2RF lisinopril-hydrochlorothiazide 20-12.5 mg tablet 2 tablet PO DAILY Qty: 180 1RF Follow-up/Referrals: Davin Quiles MD [Primary Care Provider] - 3 Days Time of Disposition: 09:25
[2024-12-27 08:45] VITALS: BP 116/63; PULSE 86; RESP 16; TEMP 36.4; O2SAT 99
[2024-12-27 08:59] LABS: EDCOVIDSCREEN Positive (Negative); EDINFLUASCREEN Negative (Negative); EDINFLUBSCREEN Negative (Negative)
== END 2024-12-27 09:28 | disposition home or self-care (01) ==
PROVIDERS: Emergency Provider Nurse Practitioner Family; PCP Family Medicine
DX: U07.1 COVID-19 (principal); Z87.891 Personal history of nicotine dependence; J45.909 Unspecified asthma, uncomplicated; I10 Essential (primary) hypertension; E66.9 Obesity, unspecified; Z68.38 Body mass index [BMI] 38.0-38.9, adult; Z86.018 Personal history of other benign neoplasm
CPT/HCPCS: 87426; 87804; 99213; G0463

== ENCOUNTER 2025-02-07 15:17 | Outpatient (CLI) | payer MEDICARE, SELFPAY ==
--- NOTE | ~2025-02-07 | CT_ITS ---
CT abdomen pelvis wo con Ordering provider: SCOTT TonyP-C History: 64 years Female with . R10.9 - Unspecified abdominal pain . Comparison: August 29, 2023 Technique: CT abdomen and pelvis without IV and without oral contrast. Automated exposure control and iterative reconstruction technique were employed. The dose-length product was 930.47 mGy-cm. Findings: VISUALIZED LOWER CHEST: Dependent atelectatic changes. UPPER ABDOMINAL ORGANS: Liver: Normal. Gallbladder: Status post cholecystectomy. Spleen: Normal. Stomach/duodenum: Normal. Pancreas: Normal. Adrenals: Left adrenal adenoma measuring 1.8 x 1.4 cm unchanged from previous examination. Kidneys: Normal. PELVIC ORGANS: The bladder is underfilled. BOWEL AND MESENTERY: Colon: No evidence of diverticulitis.. Appendix is not demonstrated. Small Bowel: Normal. No obstruction. Peritoneum/mesentery: No free air or free fluid. No mesenteric lymphadenopathy. RETROPERITONEUM: Normal aorta. No retroperitoneal lymphadenopathy. MUSCULOSKELETAL: Superficial soft tissues: Calcification in the anterior abdominal wall. Defects are seen in the upper and lower abdominal wall with fat content. Otherwise, The superficial soft tissues are normal. Bones: Age appropriate degenerative changes of the spine. Pubic symphysitis. Mild fixed dextroscoliosis.: Impression: No evidence of appendicitis, diverticulitis or intestinal obstruction. Left adrenal adenoma unchanged from previous examination. Reviewed, dictated and finalized at location A. Impression: No evidence of appendicitis, diverticulitis or intestinal obstruction. Left adrenal adenoma unchanged from previous examination.
--- OUTSIDE RECORDS SUMMARY | 2025-02-07 15:20 | XMS_ITS | Clinical Summary ---
Author Organization [facility] Address [address] 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 This disclosure is being madepursuant to the Care Everywhere program and may not contain all information available regarding this patient. Last updated 18.[facility] Allergies Active Allergy Reactions Criticality Noted Date Comments Adhesive Sensitivity 03/07/2017 Medications Be aware that medications may not be up to date on this document. Always verify current medications with the patient. No known medications Active Problems No known active problems Immunizations Name Administration Dates Next Due TDAP (7yrs+) 03/07/2017 Social History Tobacco Use Types Packs/Day Years Used Date Smoking Tobacco: Never Assessed Sex and Gender Information Value Date Recorded Sex Assigned at Not on file Gender Identity Not on file Sexual Orientation Not on file Plan of Treatment Health Maintenance Due Date Last Done Comments BONE DENSITY TESTING 1960 COLOGUARD (AGES 45-75) - COL ON CA SCREENING 1958 COLON MONITORING 1958 COLONOSCOPY - COLON CA SCREENING 1958 CT COLONOGRAPHY - COLON CA SCREENING 1960 Colorectal Cancer Screening 1958 FIT - COLON CA SCREENING 1958 FLEX SIG - COLON CA SCREENING 1958 LIPID TESTING 1960 MAMMOGRAM 1958 HEPATITIS C SCREENING 05/05/1976 PNEUMOCOCCAL VACCINE 50+ (1 of 1 - PCV) 2008 ZOSTER VACCINE (1 of 2) 2008 COVID-19 VACCINE ( - 2023-2 5 season) 2024 INFLUENZA VACCINE (#1) 2024 DEPRESSION SCREENING 11/20/2024 DTAP/TDAP/TD VACCINES (2 - T d or Tdap) 03/07/2027 03/07/2017 Respiratory Syncytial Virus (RSV) Vaccine Pt: or over 60 yrs (1 - 1-dose 75+ series) 2033 HEPATITIS B VACCINE Aged Out No longe r eligible based on patient's age to complete this topic HIB VACCINE Aged Out No longer eligi ble based on patient's age to complete this topic HPV VACCINE Aged Out No longer eligi ble based on patient's age to complete this topic MENINGOCOCCAL (Group B) VACC INE SHARED DECISION-MAKING Aged Out No longer eligibl e based on patient's age to complete this topic MENINGOCOCCAL GROUPS A/C/Y/W VACCINE Aged Out No longer eligible b ased on patient's age to complete this topic
== END 2025-02-07 15:18 | disposition home or self-care (01) ==
PROVIDERS: PCP Family Medicine; Visit Provider Nurse Practitioner Family
DX: D35.02 Benign neoplasm of left adrenal gland (principal)
CPT/HCPCS: 74176

== ENCOUNTER 2025-02-15 08:29 | Outpatient (CLI) | payer MEDICARE, SELFPAY ==
--- NOTE | ~2025-02-15 | XR_ITS ---
EXAMINATION: XR abdomen obstructive series DATE: 02/15/2025 08:47 INDICATION: Intestinal obstruction TECHNIQUE: Supine and upright views of the abdomen. FINDINGS: Comparison to multiple prior studies sequentially, with oldest reviewed study dated 2009. The visualized lung parenchyma is normal.. There are air-fluid levels in the colon, nonspecific. No s ignificant small bowel dilation is identified. There are cholecystectomy clips. There is severe lower thoracic and lumbar spondylosis with scoliosis.. Gas and stool are seen throughout the colon to the level of the rectum. There is no free air. IMPRESSION: 1. Nonspecific air-fluid levels in the colon without definite obstruction. Consider ileus and entero colitis. Reviewed, dictated and finalized at location A. IMPRESSION: 1. Nonspecific air-fluid levels in the colon without definite obstruction. Con row boss ileus and enterocolitis.
--- OUTSIDE RECORDS SUMMARY | 2025-02-15 08:33 | XMS_ITS | Clinical Summary ---
Author Organization [facility] Address [address] 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 This disclosure is being madepursuant to the Care Everywhere program and may not contain all information available regarding this patient. Last updated 18.[facility] Allergies Active Allergy Reactions Criticality Noted Date [...]
--- OUTSIDE RECORDS SUMMARY | 2025-02-15 08:33 | XMS_ITS | Referral Summary ---
Author Organization [facility] Address [address] [place] [address] Care Team Providers Care Preparer Making Department Name Role Phone Pranay Guardado MD Primary Care Provider [phone] Allergies Active Allergy Reactions Criticality Noted Date Comments Erythromycin Diarrhea,Stomach upset Low 04/24/1986 Iodinated Contrast Media Itching,Rash,Redness Medium 0 11/20/1997 Other Rash Medium 03/07/2017 Medications ALPRAZolam (XANAX) 1 mg tablet Take 1 tablet (1 mg total) by mouth daily 1 Active cyclobenzaprine (FLEXERIL) 10 mg tablet TAKE 1 TABLET BY MOUTH EVERY 8 HOURS NEEDED FOR MUSCLE SPASM [address] (CYMBALTA) 30 mg capsule Take 1 capsule (30 mg total) by mouth daily 1 Active fluticasone propionate (FLONASE) 50 mcg/actuation nasal spray Administer into each nostril daily 1 Active lisinopril-hydr oCHLOROthiazide (ZESTORETIC) 10-12.5 mg per tablet Take 1 tablet by mouth daily 1 Active traMADoL (ULTRAM) 50 mg tablet Take by mouth every 6 (six) hours as needed 1 Active Active Problems Problem Noted Date Diagnosed Date Abnormal mammogram 04/01/2021 Social History Tobacco Use Types Packs/Day Years Used Date Smoking Tobacco: Former Tobacco Cessation:Counseling Given: Not Answered Personal Safety Answer Date Recorded Getting School Help Needed Not on file 01/20 Comments No Sex and Gender Information Value Date Recorded Sex Assigned at Not on file Legal Sex Female 2:03 PM CDT Gender Identity Female 03/31/2021 11:05 AM CDT Sexual Orientation Straight 03/31/2021 11 :05 AM CDT Last Filed Vital Signs Vital Sign Reading Time Taken Comments Blood Pressure - - Pulse - - Temperature - - Respiratory Rate - - Oxygen Saturation - - Inhaled Oxygen Concentration - - Weight 99.8 kg (220 lb 0.3 oz) 09/06/2023 9:11 A M CDT Height 157.5 cm (5' 2.01 ) 09/06/2023 9:11 AM CD T Body Mass Index 40.23 09/06/2023 9:11 AM CDT Plan of Treatment Not on file Procedures Procedure Name Priority Date/Time Associated Diagnosis Comments DIAGNOSTIC MAMMOGRAM BILATERAL W JUVENTINO Schedule Routine, Read Routine (OP Routine) 09/06/2023 10:25 AM CDT Abnormal mammogram from Last 3 Months or Most Recently Relevant to Health Maintenance Results * Diagnostic Mammogram Bilateral W Juventino (09/06/2023 10:25 AM CDT) Anatomical Region Laterality Modality Breast Bilateral Mammography 09/06/2023 11:3 7 AM CDT Impressions 09/06/2023 1:40 PM CDT 1. Near complete resolution of previously described cluster of cysts within the LEFT breast at the 12 o'clock position 3 cm from the nipple. Additional benign fibrocystic changes in LEFT breast noted on mammography and ultrasound. 2. No suspicious mammographic abnormality within EITHER breast. OVERALL FINAL ASSESSMENT: BI-RADS Category 2: Benign. RECOMMENDATION: Annual screening mammography is recommended. Dictated by: Marino Vallejo MD The radiology attending physician has personally reviewed this study, and had reviewed and/or edited this written report and agrees with it. Electronically signed by: Jesika Miller 09/06/2023 1:40 PM CDT EXAMINATION: BILATERAL DIGITAL DIAGNOSTIC MAMMOGRAM INCLUDING CAD AND BILATERAL DIGITAL BREAST TOMOSYNTHESIS; LEFT BREAST SONOGRAM HISTORY: 63-year-old woman here for follow-up of left breast cluster of cysts. COMPARISON: Mammogram and ultrasound dating back to 2020. TECHNIQUE: Full field digital mammographic views of BOTH breasts were performed, including computer aided detection (CAD) and BILATERAL digital breast tomosynthesis (DBT). Directed ultrasound evaluation of the LEFT breast was performed. BREAST PARENCHYMAL COMPOSITION: The breasts are almost entirely fatty. MAMMOGRAM FINDINGS: There is no new suspicious abnormality in EITHER breast. Redemonstrated waxing and waning oval circumscribed masses within the LEFT breast compatible with fibrocystic changes. One of the masses in the upper central left breast, middle depth, is increased in size and was further evaluated with ultrasound. Spot compression view was obtained of an asymmetry in the right breast, demonstrating normal breast tissue. SONOGRAM FINDINGS: Targeted sonographic evaluation of the LEFT breast at the 12 o'clock position 3 cm from the nipple shows near complete resolution of previously described cluster of cysts, consistent with benign finding. Targeted sonographic evaluation of the LEFT breast at the 11:30 position 6 cm from the nipple in location of mammographically increased mass shows an oval, circumscribed, anechoic mass without internal vascularity compatible with benign cyst. Procedure Note Daniela Trejo MD - 09/06/2023 EXAMINATION: BILATERAL DIGITAL DIAGNOSTIC MAMMOGRAM INCLUDING CAD AND BILATERAL DIGITAL BREAST TOMOSYNTHESIS; LEFT BREAST SONOGRAM HISTORY: 63-year-old woman here for follow-up of left breast cluster of cysts. COMPARISON: Mammogram and ultrasound dating back to 2020. TECHNIQUE: Full field digital mammographic views of BOTH breasts were performed, including computer aided detection (CAD) and BILATERAL digital breast tomosynthesis (DBT). Directed ultrasound evaluation of the LEFT breast was performed. BREAST PARENCHYMAL COMPOSITION: The breasts are almost entirely fatty. MAMMOGRAM FINDINGS: There is no new suspicious abnormality in EITHER breast. Redemonstrated waxing and waning oval circumscribed masses within the LEFT breast compatible with fibrocystic changes. One of the masses in the upper central left breast, middle depth, is increased in size and was further evaluated with ultrasound. Spot compression view was obtained of an asymmetry in the right breast, demonstrating normal breast tissue. SONOGRAM FINDINGS: Targeted sonographic evaluation of the LEFT breast at the 12 o'clock position 3 cm from the nipple shows near complete resolution of previously described cluster of cysts, consistent with benign finding. Targeted sonographic evaluation of the LEFT breast at the 11:30 position 6 cm from the nipple in location of mammographically increased mass shows an oval, circumscribed, anechoic mass without internal vascularity compatible with benign cyst. IMPRESSION: 1. Near complete resolution of previously described cluster of cysts within the LEFT breast at the 12 o'clock position 3 cm from the nipple. Additional benign fibrocystic changes in LEFT breast noted on mammography and ultrasound. 2. No suspicious mammographic abnormality within EITHER breast. OVERALL FINAL ASSESSMENT: BI-RADS Category 2: Benign. RECOMMENDATION: Annual screening mammography is recommended. Dictated by: Marino Vallejo MD The radiology attending physician has personally reviewed this study, and had reviewed and/or edited this written report and agrees with it. Electronically signed by: Daniela rTejo M.D. Renee Zaldivar NP IMG MAMMO PROCEDURES Fin al Result from Last 3 Months or Most Recently Relevant to Health Maintenance Insurance [facility] MEDICARE ADVANTAGE [facility] MEDICARE ADVANTAGE Care Teams Preparer Making Department Relationship Specialty Start Date End Date Pranay Guardado MD [address] [place] [address] [place] [id number] PCP - General Family Medicine 08/24/23
--- OUTSIDE RECORDS SUMMARY | 2025-02-15 08:33 | XMS_ITS | Clinical Summary ---
Author Organization [facility] Address [address] [place] [address] Care Team Providers Care Security Intelligence Analyst Name Role Phone Pranay Guardado MD Primary Care Provider [phone] Allergies Active Allergy Reactions Criticality Noted Date [...] Noted Date Diagnosed Date Abnormal mammogram 04/01/2021 Surgical History Surgery Date Site/Laterality Comments BREAST CYST ASPIRATION APPENDECTOMY HYSTERECTOMY HERNIA REPAIR BOWEL RESECTION TOTAL KNEE ARTHROPLASTY CATARACT EXTRACTION, BILATERAL Medical History Medical History Date Comments Hypertension Depression Osteoarthritis Arthritis Family History Medical History Relation Name Comments Lung cancer Brother Colon cancer Father Relation Name Status Comments Brother Father Social History Tobacco Use Types Packs/Day Years [...] Orientation Straight 03/31/2021 11 :05 AM CDT Obstetrics History Last Filed Vital Signs Vital Sign Reading [...] 09/06/2023 9:11 AM CDT Plan of Treatment Health Maintenance Due Date Last Done Comments Colon Cancer Screening-Colonoscopy 1958 Depression Screening 1958 Fall Risk Assessment 1958 Hepatitis C Screening 1958 Osteoporosis Screening-Bone Density Scan 1958 Hepatitis B Screening 1976 Pneumococcal vaccine 65+ (1 of 1 - PCV) 2008 Zoster Vaccine (1 of 2) 2008 Well Visit 65+ 2023 Influenza Vaccine (#1) 2024 10/02/2020, 2017 Breast Cancer Screening-Mammogram 09/06/2024 023, 04/06/2022 DTaP/Tdap/Td Vaccine (2 - Td or Tdap) 03/07/2027 Procedures Procedure Name Priority Date/Time Associated Diagnosis [...] agrees with it. Electronically signed by: Daniela Trejo M.D. Narrative 09/06/2023 1:40 PM CDT EXAMINATION: BILATERAL DIGITAL [...] agrees with it. Electronically signed by: Daniela Trejo M.D. Renee Zaldivar NP IMG MAMMO PROCEDURES Fin al Result from Last 3 Months or Most Recently Relevant to Health Maintenance Insurance [facility] MEDICARE ADVANTAGE [facility] MEDICARE ADVANTAGE Care Teams Security Intelligence Analyst Relationship Specialty Start Date End Date Pranay Guardado MD [address] [place] [address] [id number] PCP - General Family Medicine 08/24/23
== END 2025-02-15 08:30 | disposition home or self-care (01) ==
PROVIDERS: PCP Family Medicine; Visit Provider Family Medicine
DX: K56.609 Unspecified intestinal obstruction, unspecified as to partial versus complete obstruction (principal); K59.09 Other constipation
CPT/HCPCS: 74019

== ENCOUNTER 2025-03-17 09:20 | Outpatient (CLI) | payer MEDICARE, SELFPAY ==
--- OUTSIDE RECORDS SUMMARY | 2025-03-17 10:06 | XMS_ITS | Clinical Summary ---
Author Organization [facility] Address [address] [place] [address] Care Team Providers Care Plant Control Operator Name Role Phone Pranay Guardado MD Primary Care Provider [phone] Allergies Active Allergy Reactions Criticality Noted Date [...] Most Recently Relevant to Health Maintenance Insurance [facility] MEDICARE ADVANTAGE [facility] MEDICARE ADVANTAGE [facility] Address: [address] [address] [place] [address] Care Teams Plant Control Operator Relationship Specialty Start Date End Date Pranay Guardado MD [address] [place] [address] [address] PCP - General Family Medicine 08/24/23
--- OUTSIDE RECORDS SUMMARY | 2025-03-17 10:06 | XMS_ITS | Clinical Summary ---
Author Organization [facility] [employer] Address [address] [place] [address] Care Team Providers Care Finishing Machine Tender Name Role Phone Unavailable Primary Care Provider Unavailabl e Source Comments [facility],non-owned Affiliates and Associated Physician Practices is amultiple site organization consisting of ambulatory clinics and hospital sitesin [place], [place], [place] and [place]. This disclosure is being madepursuant to the Care Everywhere program and may not contain all information available regarding this patient. Last updated 18.[facility] [employer] Allergies Active Allergy Reactions Criticality Noted Date Comments Adhesive Sensitivity 03/07/2017 Medications * Be aware that medications may not be up to date on this document. Alwaysverify current medications with the patient. No known medications Active Problems No known active problems Immunizations Immunization Administration Dates Next Due TDAP (7yrs+) 03/07/2017 Social History Tobacco Use Types Packs/Day Years Used Date Smoking Tobacco: Never Assessed Comments Unknown Sex and Gender Information Value Date Recorded Sex Assigned at Not on file Legal Sex Female 11:35 AM CDT Gender Identity Not on file Sexual Orientation [...] VACCINE (1 of 2) 2008 COVID-19 VACCINE (1 - 2023-2 5 season) 2024 DEPRESSION SCREENING 11/20/2024 INFLUENZA VACCINE (Season Ended) 2025 DTAP/TDAP/TD VACCINES (2 - T d or [...] on patient's age to complete this topic Insurance [employer]
--- OUTSIDE RECORDS SUMMARY | 2025-03-17 10:06 | XMS_ITS | Referral Summary ---
Author Organization [facility] Address [address] [place] [address] Care Team Providers Care Shift Commander Name Role Phone Pranay Guardado MD Primary Care Provider [phone] Allergies Active Allergy Reactions Criticality Noted Date [...] Most Recently Relevant to Health Maintenance Insurance [facility] MEDICARE ADVANTAGE [facility] MEDICARE ADVANTAGE Care Teams Shift Commander Relationship Specialty Start Date End Date Pranay Guardado MD [address] [place] [address] [place] [id number] PCP - General Family Medicine 08/24/23
[2025-03-17 11:26] LABS: Basophils Absolute Auto 0.1 K/mm3 (0.0-0.1); Basophils Percent Auto 1.3 % (0.2-1.2); Eosinophils Absolute Auto 0.1 K/mm3 (0-0.3); Eosinophils Percent Auto 2.5 % (0-4.4); Hematocrit 47.7 % (37.0-47.0); Hemoglobin 15.7 g/dL (12.0-15.0); Immature Granulocyte Absolute 0.01 K/mm3 (0.00-0.031); Immature Granulocyte Percent A 0.2 % (0-0.5); Lymphocytes Percent Auto 39.7 % (18.3-44.2); Mean Corpuscular HGB Conc 32.9 g/dl (32-36); Mean Corpuscular Hemoglobin 31.1 pg (26-34); Mean Corpuscular Volume 94.5 fl (80-100); Mean Platelet Volume 9.7 fl (7.4-10.4); Monocytes Absolute Auto 0.3 K/mm3 (0.1-0.6); Monocytes Percent Auto 6.9 % (2.6-8.5); Neutrophils Absolute Auto 2.4 K/mm3 (1.3-6.7); Neutrophils Percent Auto 49.4 % (45.5-73.1); Platelet Count Result 344 k/mm3 (150-375); Red Blood Count 5.05 M/mm3 (4.2-5.4); Red Cell Distribution Width 12.6 % (11.5-14.5); White Blood Count 4.8 K/mm3 (4.5-10.0)
[2025-03-17 11:50] LABS: Alanine Aminotransferase 26 U/L (6-35); Albumin Level 4.6 g/dL (3.5-5.1); Alkaline Phosphatase 82 U/L (38-126); Anion Gap 11 mmol/L (4-12); Aspartate Amino Transferase 62 U/L (14-36); Bilirubin,Total 1.2 mg/dL (0.2-1.3); Blood Urea Nitrogen 7 mg/dL (7-17); Calcium 9.4 mg/dL (8.4-10.2); Carbon Dioxide 27 mmol/L (22-30); Chloride 100 mmol/L (98-107); Cholesterol 172 mg/dL (0-200); Estimated Glomerular Filt Rate > 60; Glucose 118 mg/dL (65-110); HDL Direct 68 mg/dL; Potassium 3.6 mmol/L (3.4-5.0); Sodium 138 mmol/L (137-145); Triglycerides 86 mg/dL (<150)
[2025-03-17 12:00] LABS: Iron 80 ug/dL (37-170)
[2025-03-17 12:01] LABS: LDL Cholesterol Direct 65 mg/dL
[2025-03-17 12:11] LABS: Percent Iron Saturation 23 % (20-50)
== END 2025-03-17 09:21 | disposition home or self-care (01) ==
LOC: ANHGOSHLAB 09:21
PROVIDERS: PCP Family Medicine; Visit Provider Nurse Practitioner Family
DX: F32.9 Major depressive disorder, single episode, unspecified (principal); I10 Essential (primary) hypertension; E66.01 Morbid (severe) obesity due to excess calories; Z68.41 Body mass index [BMI] 40.0-44.9, adult; R74.8 Abnormal levels of other serum enzymes; M46.1 Sacroiliitis, not elsewhere classified
CPT/HCPCS: 36415; 80053; 80061; 83540; 83550; 84443; 85025

== ENCOUNTER 2025-03-27 15:47 | Outpatient (CLI) | payer MEDICARE, SELFPAY ==
--- NOTE | ~2025-03-27 | XR_ITS ---
Supine and upright views of the abdomen Clinical history: Constipation Findings: Bowel gas pattern is nonspecific. No evidence for obstruction or free air. 2.9 cm amorphous density or calcification is projecting just right of the L4 vertebral body. Osseous structures are i ntact. Impression: Nonspecific bowel gas pattern. 2.9 cm density or calcification projecting to the right of the L4 vertebral body. Based on prior CT f rom 02/07/2025, this may correlate with a coarse calcification along the anterior abdominal wall. Reviewed, dictated and finalized at location M. Impression: Nonspecific bowel gas pattern. 2.9 cm density or calcification projecting to the right of the L4 vertebral bod y. Based on prior CT from 02/07/2025, this may correlate with a coarse calcifica tion along the anterior abdominal wall.
--- OUTSIDE RECORDS SUMMARY | 2025-03-27 15:51 | XMS_ITS | Referral Summary ---
Author Organization [facility] Address [address] [place] [address] Care Team Providers Care Clinical Sciences Professor Name Role Phone Pranay Guardado MD Primary Care Provider [phone] Allergies Active Allergy Reactions Criticality Noted Date [...] Most Recently Relevant to Health Maintenance Insurance [facility] MEDICARE ADVANTAGE [facility] MEDICARE ADVANTAGE Care Teams Clinical Sciences Professor Relationship Specialty Start Date End Date Pranay Guardado MD [address] [place] [address] [place] [id number] PCP - General Family Medicine 08/24/23
--- OUTSIDE RECORDS SUMMARY | 2025-03-27 15:51 | XMS_ITS | Clinical Summary ---
Author Organization [facility] [employer] Address [address] [place] [address] Care Team Providers Care Plasterer Journeyman Name Role Phone Unavailable Primary Care Provider Unavailabl e Source Comments [facility],non-owned Affiliates and Associated Physician Practices is amultiple site organization consisting of ambulatory clinics and hospital sitesin [place], [place], [place] and [place]. This disclosure is being madepursuant to the Care Everywhere program and may not contain all information available regarding this patient. Last updated 18.[facility] [employer] Allergies Active Allergy Reactions Criticality Noted Date [...] age to complete this topic Insurance [facility] Address: [facility] [address] [place] [address] [facility] Address: [facility] [id number] [place] [address]
--- OUTSIDE RECORDS SUMMARY | 2025-03-27 15:51 | XMS_ITS | Clinical Summary ---
Author Organization [facility] Address [address] [place] [address] Care Team Providers Care Marketing Project Manager Name Role Phone Pranay Guardado MD Primary Care Provider [phone] Allergies Active Allergy Reactions Criticality Noted Date [...] Most Recently Relevant to Health Maintenance Insurance [facility] MEDICARE ADVANTAGE [facility] MEDICARE ADVANTAGE Care Teams Marketing Project Manager Relationship Specialty Start Date End Date Pranay Guardado MD [address] [place] [address] [address] PCP - General Family Medicine 08/24/23
== END 2025-03-27 15:48 | disposition home or self-care (01) ==
PROVIDERS: PCP Family Medicine; Visit Provider Nurse Practitioner Family
DX: K59.09 Other constipation (principal)
CPT/HCPCS: 74018

== ENCOUNTER 2025-08-15 06:46 | Outpatient (CLI) | payer MEDICARE, SELFPAY ==
--- NOTE | ~2025-08-15 | MR_ITS ---
EXAMINATION: MR cervical spine wo con DATE: 08/15/2025 07:39 INDICATION: Radiculopathy, cervical region. TECHNIQUE: Magnetic resonance imaging (MRI) of the cervical spine was performed without intravenous contrast. COMPARISON: None FINDINGS: There is 5 degrees levocurvature of cervical spine. Vertebral body heights are normal. There is severely decreased disc height at C4-C5 and C5-C6 and moderately decreased disc height at C6-C7. The spinal cord signal intensity is normal. The following disc levels are specifically discussed: C2-C3: There is a central protrusion. There is mild left uncovertebral joint osteoarthritis. There is severe bilateral facet joint osteoarthritis. There is mild left neural foraminal stenosis. There is no central canal stenosis. C3-C4: There is a central protrusion. There is mild bilateral uncovertebral joint osteoarthritis. There is severe right and moderate left facet joint osteoarthritis. There is mild right neural foraminal stenosis. There is mild central canal stenosis. C4-C5: There is a central extrusion. There is severe bilateral uncovertebral joint osteoarthritis. There is severe bilateral facet joint osteoarthritis. There is moderate bilateral neural foraminal stenosis. There is mild central canal stenosis. C5-C6: The disc is bulging. There is severe bilateral uncovertebral joint osteoarthritis. There is moderate bilateral facet joint osteoarthritis. There is moderate bilateral neural foraminal stenosis. There is mild central canal stenosis. C6-C7: The disc is bulging. There is severe bilateral uncovertebral joint osteoarthritis. There is mild bilateral facet joint osteoarthritis. There is mild bilateral neural foraminal stenosis. There is mild central canal stenosis. C7-T1: There is a central protrusion. There is no uncovertebral joint osteoarthritis. There is severe bilateral facet joint osteoarthritis. There is mild bilateral neural foraminal stenosis. There is no central canal stenosis. IMPRESSION: 1. Severe cervical spondylosis. Reviewed, dictated and finalized at location E.
--- NOTE | ~2025-08-15 | MR_ITS ---
EXAMINATION: MR lumbar spine wo con DATE: 08/15/2025 07:40 INDICATION: Radiculopathy, lumbosacral region. TECHNIQUE: Magnetic resonance imaging (MRI) of the lumbar spine was performed without intravenous contrast. Sequences included sagittal T2-weighted FSE, sagittal T2-weighted FS FSE, sagittal T1-weighted FSE, and axial T2-weighted FSE. COMPARISON: Lumbar spine MRI 03/02/2024 FINDINGS: There is 13 degrees dextroscoliosis of lumbar spine. There is 4 mm anterolisthesis of L4 on L5. There is mild chronic height loss of L3 on L4 vertebral bodies. There is moderately decreased disc height at L1-L2 and L2-L3, severely decreased disc height at L3-L4, mildly decreased disc height at L4-L5, and severely decreased disc height at L5-S1. There is ligamentum flavum hypertrophy at the disc levels from L1-L2 through L4-L5. The distal spinal cord signal intensity is normal. The conus medullaris is at L1. The following disc levels are specifically discussed: L1-L2: The disc is bulging. There is moderate right and severe left facet joint osteoarthritis. There is mild bilateral neural foraminal stenosis. There is mild central canal stenosis. L2-L3: The disc is bulging and has an annular fissure. There is severe bilateral facet joint osteoarthritis. There is mild bilateral neural foraminal stenosis. There is mild central canal stenosis. L3-L4: The disc is bulging and has an annular fissure. There is severe bilateral facet joint osteoarthritis. There is mild bilateral neural foraminal stenosis. There is mild central canal stenosis. L4-L5: The disc is bulging and has an annular fissure. There is severe bilateral facet joint osteoarthritis. There is moderate right and mild left neural foraminal stenosis. There is moderate central canal stenosis. L5-S1: The disc is bulging. There is severe bilateral facet joint osteoarthritis. There is mild bilateral neural foraminal stenosis. There is mild central canal stenosis. IMPRESSION: 1. Severe lumbar spondylosis, mildly worsened from 03/02/2024. Reviewed, dictated and finalized at location E.
== END 2025-08-15 06:47 | disposition home or self-care (01) ==
PROVIDERS: PCP Family Medicine; Visit Provider Nurse Practitioner Adult Health
DX: M47.22 Other spondylosis with radiculopathy, cervical region (principal); M47.27 Other spondylosis with radiculopathy, lumbosacral region
CPT/HCPCS: 72141; 72148

== ENCOUNTER 2025-09-16 08:15 | Day surgery (SDC) | payer MEDICARE, SELFPAY ==
[2025-09-05 09:46] VITALS: BMI 40.3
--- NOTE | ~2025-09-16 | XR_ITS ---
EXAMINATION: XR fluoroscopy no charge DATE: 09/16/2025 09:45 INDICATION: Bilateral L4-L5 transforaminal epidural steroid injections TECHNIQUE: 36 fluoroscopic images of the lumbar spine were obtained during pain management procedure performed by Dr. Florez. Radiologist was not present for the imaging or procedure. The amount of fluoroscopy time used during this procedure was 0.6 minutes. The cumulative radiation dose was 13.93 mGy. COMPARISON: None. FINDINGS: Images demonstrate needles advanced to the region of the bilateral L4- L5 neural foramina with contrast injection demonstrating perineural spread no evident intrauterine mass or intrathecal contrast. IMPRESSION: 1. Fluoroscopy utilized during bilateral L4-L5 transforaminal injections. See procedure note for further detail. Reviewed, dictated and finalized at location A. IMPRESSION: 1. Fluoroscopy utilized during bilateral L4-L5 transforaminal injections. See p rocedure note for further detail.
[2025-09-16 08:34] VITALS: BP 116/64; PULSE 79; RESP 16; TEMP 36.6; O2SAT 97
--- OUTSIDE RECORDS SUMMARY | 2025-09-16 08:39 | XMS_ITS | Clinical Summary ---
Author Organization [facility] Address [address] [place] [address] Care Team Providers Care Cloth Bleaching Range Back Tender Name Role Phone Pranay Guardado MD Primary Care Provider [phone] Allergies Active Allergy Reactions Criticality Noted Date [...] A M CDT Height 157.5 cm (5' 2.01) 09/06/2023 9:11 AM CD T Body Mass [...] of 2) 2008 Well Visit 65+ 2023 Breast Cancer Screening-Mammogram 09/06/2024 023, 04/06/2022 Influenza Vaccine (#1) 2025 10/02/2020, 2017 DTaP/Tdap/Td Vaccine (2 - Td or Tdap) [...] Most Recently Relevant to Health Maintenance Insurance [facility] MEDICARE ADVANTAGE [facility] MEDICARE ADVANTAGE Care Teams Cloth Bleaching Range Back Tender Relationship Specialty Start Date End Date Pranay Guardado MD [address] [place] [address] [address] PCP - General Family Medicine 08/24/23
--- OUTSIDE RECORDS SUMMARY | 2025-09-16 08:39 | XMS_ITS | Clinical Summary ---
Author Organization [facility] [employer] Address [address] [place] [address] Care Team Providers Care Cafeteria Aide Name Role Phone Unavailable Primary Care Provider Unavailabl e Source Comments [facility],non-owned Affiliates and Associated Physician Practices is amultiple site organization consisting of ambulatory clinics and hospital sitesin [place], [place], [place] and [place]. This disclosure is being madepursuant to the Care Everywhere program and may not contain all information available regarding this patient. Last updated 18.[facility] [employer] Allergies Active Allergy Reactions Criticality Noted Date [...] 2008 ZOSTER VACCINE (1 of 2) 2008 DEPRESSION SCREENING 11/20/2024 COVID-19 VACCINE (1 - 2023-2 5 season) 2025 INFLUENZA VACCINE (#1) 2025 DTAP/TDAP/TD VACCINES (2 - T d [...]
--- NOTE | 2025-09-16 08:57 | WPDHPUPDATE1 ---
History and Physical Update Update Date/Time: 09/16/25 08:57 History and Physical has been reviewed, including an updated exam of the patient. There are NO changes in the patient's condition. Risks, benefits, and alternatives have been discussed and questions answered. Patient agrees to proceed with procedure.
--- NOTE | 2025-09-16 08:58 | P.OP_ITS ---
Procedure Note - Detailed Date of Procedure 09/16/25 Pre-op Diagnosis Lumbosacral radiculopathy, lumbar spinal stenosis Post-op Diagnosis Same Procedure Performed Bilateral Lumbar Transforaminal Epidural Steroid Injection under Fluoroscopic Guidance and with Contrast Control at L4-5. Surgeon Yrn Florez MD Anesthesia Local Description of Procedure INFORMED CONSENT: Risks, benefits and alternatives to the procedure were discussed in detail with the patient who expressed explicit understanding and consent to proceed. Patient was informed verbally and in written form regarding the risks associated with the procedure including the low risk of serious infection, bleeding/bruising, allergic reaction, nerve or organ injury, paralysis, procedural site pain or discomfort, worsening pain and/or mobility, failure to treat and/or disfigurement. The patient expressed explicit understanding and consent to proceed. All materials required for the procedure were available prior to procedure start. Site and side was marked prior to procedure and confirmed in the presence of the patient. PROCEDURE IN DETAIL: The patient was brought to the procedural suite and placed in the prone position. Patient was made comfortable with use of pillows under the head/chest, hips and ankles. Skin overlying the injection site was prepared broadly with ChloraPrep applicator and draped in a sterile manner. Aseptic technique was employed throughout. The endplates of the vertebral body at the site of interest were aligned in the AP view. Ipsilateral oblique angulation was utilized to better visualize the neuroforamen of interest. Local anesthesia was established by infiltration with approximately 5 mL of 0.5% PF lidocaine via a 1-1/2 inch 27-gauge needle. A 22-gauge 5.0 inch Chuck (pencil point) spinal needle was advanced until the needle approached the 6 o'clock position on the pedicle just superior to the exiting nerve root. on the right at L4-5. Lateral view was utilized to confirm appropriate position of the needle tip within the superior and posterior portion of the respective foramen. In an AP view, 1 mL of Dotarem contrast medium was injected after negative aspiration for CSF, blood or other bodily fluid, showing appropriate neurogram without evidence of intra vascular or intrathecal spread of contrast. Digital subtraction imaging was used with an additional 1ml of the same contrast medium to confirm absence of intravascular contrast spread. A 1mL solution containing 5 mg of dexamethasone was injected after negative repeat aspiration. Appropriate spread of the injectate was confirmed with washout of previously injected contrast. No parasthesias were elicited. Needle was removed completely intact without difficulty. The same exact procedure was repeated for all remaining levels on the contralateral side, left L4-5 neuroforamen, modified as necessary to accommodate for the new target location with identical findings and results and no evidence of complication. Images were saved and documented in the patient chart. Patient's skin was cleaned and sterile bandage applied. The patient tolerated the procedure well. The patient was transported to the recovery area in stable condition where they were observed for an appropriate amount of time prior to discharge, without evidence of complication. The patient was instructed to avoid excessive activity for the next 48 hours, including climbing and frequent use of stairs. Showers only for 48 hours. They were instructed not to drive or operate heavy machinery for 24 hours. They are to monitor for severe headaches, fevers, chills, night sweats, erythema/swelling at the site or any other signs of infection, bleeding/bruising, bowel or bladder changes as well as new pain, weakness or numbness in the upper or lower extremity. Should they notice these changes, they are instructed to call our off ice immediately or report directly to the nearest Emergency Department if no answer or if after posted office hours. COMPLICATIONS: None COMMENTS: None CONTRAST WASTED: 16 mL Dotarem. STEROID WASTED: 0 mg of dexamethasone. Complications No immediate complications Condition Stable Disposition Same day [facility] Billing Surgery - Charge Forward: Surgery Billing
[2025-09-16 09:31] VITALS: BP 112/64; PULSE 81; RESP 13; O2SAT 92
[2025-09-16] MEDS: DEXAMETHASONE SODIUM PHOSP/PF 10 MG/ML 1 ML VIAL (09:35)
[2025-09-16 09:38] VITALS: BP 110/60; PULSE 73; RESP 17; O2SAT 92
[2025-09-16] MEDS: LIDOCAINE 2% PF LOCAL INJ 5 ML VIAL (09:38)
[2025-09-16 09:45] VITALS: BP 102/63; PULSE 74; RESP 20; O2SAT 97
== END 2025-09-16 09:58 | disposition home or self-care (01) ==
PROVIDERS: PCP Family Medicine; Visit Provider Anesthesiology Pain Medicine
PROC: (CPT 64483; principal; 2025-09-16 09:30)
DX: M48.07 Spinal stenosis, lumbosacral region (principal); M47.27 Other spondylosis with radiculopathy, lumbosacral region
CPT/HCPCS: 64483; 99199

== ENCOUNTER 2025-10-07 10:21 | Day surgery (SDC) | payer MEDICARE, SELFPAY ==
[2025-10-06 08:15] VITALS: BMI 40.3
--- NOTE | ~2025-10-07 | XR_ITS ---
EXAM/PROCEDURE: XR fluoroscopy no charge HISTORY: MIDLINE C6-7 INTERLAMINAR EPIDURAL STEROID INJ COMPARISON: None available. Fluoroscopy time: 16.9 seconds Dose: 1.15 mgy IMPRESSION: Fluoroscopic guidance for pain management. No radiologist present for this procedure. See procedure/operative notes for complete evaluation. Reviewed, dictated and finalized at location A. INSPECTOR IMPRESSION: Fluoroscopic guidance for pain management. No radiologist present for this proc edure. See procedure/operative notes for complete evaluation.
[2025-10-07 12:12] VITALS: BP 111/98; PULSE 91; RESP 16; TEMP 36.8; O2SAT 98
--- NOTE | 2025-10-07 12:25 | WPDHPUPDATE1 ---
History and Physical Update Update Date/Time: 10/07/25 12:25 History and Physical has been reviewed, including an updated exam of the patient. There are NO changes in the patient's condition. Risks, benefits, and alternatives have been discussed and questions answered. Patient agrees to proceed with procedure.
--- NOTE | 2025-10-07 12:26 | P.OP_ITS ---
Procedure Note - Detailed Date of Procedure 10/07/25 Pre-op Diagnosis Cervical Radiculopathy and Spondylosis Post-op Diagnosis Same Procedure Performed Midline Cervical Interlaminar Epidural Steroid Injection at C6-7 under Fluoroscopic Guidance and with Contrast Control. Surgeon Yrn Florez MD Anesthesia Local Description of Procedure INFORMED CONSENT: Risks, benefits and alternatives to the procedure were discussed in detail with the patient who expressed explicit understanding and consent to proceed. Patient was informed verbally and in written form regarding the risks associated with the procedure including the low risk of serious infection, bleeding/bruising, allergic reaction, nerve or organ injury, paralysis, procedural site pain or discomfort, worsening pain and/or mobility, failure to treat and/or disfigurement. The patient expressed explicit understanding and consent to proceed. All materials required for the procedure were available prior to procedure start. Site and side was marked prior to procedure and confirmed in the presence of the patient. PROCEDURE IN DETAIL: The patient was brought to the procedural suite and placed in the prone position. Patient's head was positioned and stabilized with a ProneView pillow or equivalent. Patient was made comfortable with use of pillows under the chest, hips and ankles. Skin overlying the injection site was prepared broadly with ChloraPrep applicator and draped in a sterile manner. Aseptic technique was employed throughout. The endplates of the vertebral body at the site of interest were aligned in the AP view. Slight caudad tilt and ipsilateral oblique angulation was utilized to optimize visualization of the targeted posterior intervertebral foramen at C6-7. Local anesthesia was established by infiltration with approximately 5 mL of 2% lidocaine via a 1-1/2 inch 27-gauge needle. A 20-gauge 4-inch Tuohy epidural needle was advanced intermittently until appropriate loss of resistance to air was identified via plastic loss of resistance syringe. Lateral view was used to confirm the a ppropriate positioning of the needle tip within the posterior epidural space. In the AP view, 1.0 mL of Dotarem contrast medium was injected after negative aspiration for CSF, blood or other bodily fluid, showing appropriate epidural spread of contrast without evidence of intravascular or intrathecal placement. After negative repeat aspiration for CSF, blood or other bodily fluid, A 4 mL solution containing 10 mg of dexamethasone in sterile PF Normal Saline was injected after negative repeat aspiration. Appropriate spread of the injectate was confirmed with washout of previously injected contrast. No parasthesias were elicited. Needle was removed completely intact without difficulty. Images were saved and documented in the patient chart. Patient's skin was cleansed and sterile bandage applied. The patient tolerated the procedure well. The patient was transported to the recovery area in stable condition where they were observed for an appropriate amount of time prior to discharge, without evidence of complication. The patient was instructed to avoid excessive activity for the next 48 hours, including overhead work, reaching or extended device/computer usage. Showers only for 48 hours. They were instructed not to drive or operate heavy machinery for 24 hours. They are to monitor for severe headaches, fevers, chills, night sweats, erythema/swelling at the site or any other signs of infection, bleeding/bruising, bowel or bladder changes as well as new pain, weakness or numbness in the upper or lower extremity. Should they notice these changes, they are instructed to call our office immediately or report directly to the nearest Emergency Department if no answer or if after posted office hours. CONTRAST WASTED: 19mL Dotarem Complications No immediate complications Condition Stable Disposition Same day [facility]illing Surgery - Charge Forward: Surgery Billing
[2025-10-07 13:04] VITALS: BP 134/82; PULSE 84; RESP 15; O2SAT 93
[2025-10-07] MEDS: LIDOCAINE 1% PF INJ 5 ML VIAL INFILTRATE (13:04)
[2025-10-07] MEDS: DEXAMETHASONE SODIUM PHOSP/PF 10 MG/ML 1 ML VIAL (13:04)
[2025-10-07 13:09] VITALS: BP 133/80; PULSE 133; RESP 15; O2SAT 95
[2025-10-07 13:13] VITALS: BP 126/87; PULSE 80; RESP 16; O2SAT 98
== END 2025-10-07 13:24 | disposition home or self-care (01) ==
PROVIDERS: PCP Family Medicine; Visit Provider Anesthesiology Pain Medicine
PROC: (CPT 62321; principal; 2025-10-07 11:30)
DX: M47.22 Other spondylosis with radiculopathy, cervical region (principal)
CPT/HCPCS: 62321; 99199